=== PATIENT | female | born 1950 | race Two or more races ===

== ENCOUNTER 2020-01-04 10:46 | Outpatient (REF) | payer MEDICARE, SELFPAY ==
[2020-01-04 12:20] LABS: MANUAL DIFF FLAG NO
[2020-01-04 12:24] LABS: Basophils Absolute Auto 0.1 X10*3/uL (0.0-0.2); Basophils Percent Auto 0.9 % (0-2); Eosinophils Absolute Auto 0.5 X10*3/uL (0.0-0.4); Eosinophils Percent Auto 5.5 % (0-4); Hematocrit 37.2 % (37-47); Hemoglobin 11.3 g/dl (12.0-16.0); Imm Gran Abs Auto 0.04 X10*3/uL (0.00-0.03); Imm Gran Pct Auto 0.4 % (0.0-0.4); Lymphocytes Absolute Auto 2.9 X10*3/uL (1.2-4.9); Lymphocytes Percent Auto 32.7 % (20-40); Mean Corpuscular HGB Conc 30.4 g/dl (31.0-35.0); Mean Corpuscular Hemoglobin 26.7 pg (27.0-33.0); Mean Corpuscular Volume 87.7 fL (80-98); Mean Platelet Volume 10.2 fL (9.4-12.3); Monocytes Absolute Auto 0.7 X10*3/uL (0.1-1.2); Monocytes Percent Auto 7.7 % (2-11); Neutrophils Absolute Auto 4.8 X10*3/uL (2.0-8.3); Neutrophils Percent Auto 52.8 % (45-73); Platelet Count 294 X10*3/uL (160-400); Red Blood Count 4.24 X10*6/uL (4.20-5.50); Red Cell Distribution Width 14.8 % (11.0-16.0)
[2020-01-04 12:41] LABS: Alanine Aminotransferase 11 U/L (0-31); Albumin Level 3.8 g/dL (3.5-5.0); Alkaline Phosphatase 106 U/L (39-117); Anion Gap 11 (12-20); Aspartate Amino Transferase 16 U/L (5-31); Bilirubin Total 0.3 mg/dL (0.0-1.0); Blood Urea Nitrogen 23 mg/dL (9-16); Calcium 8.8 mg/dL (8.4-10.2); Carbon Dioxide 26 mmol/L (22-29); Chloride 107 mmol/L (96-108); Estimated Glomerular Filt Rate > 60; Glucose Random 68 mg/dL (60-115); Potassium 4.2 mmol/l (3.3-5.1); Sodium 140 mmol/L (135-145); Total Protein 6.5 g/dL (6.5-8.0)
[2020-01-04 13:04] LABS: Ferritin 8 ng/mL (10-250)
== END 2020-01-04 10:47 | disposition home or self-care (01) ==
LOC: HO.LAB 10:46
PROVIDERS: PCP Internal Medicine; Visit Provider Internal Medicine
DX: Z00.00 Encounter for general adult medical examination without abnormal findings (principal); D50.8 Other iron deficiency anemias; G47.33 Obstructive sleep apnea (adult) (pediatric); I10 Essential (primary) hypertension
CPT/HCPCS: 36415; 80053; 82728; 85025

== ENCOUNTER 2020-01-20 10:54 | Emergency (ER) | payer MEDICARE, OTHER, SELFPAY ==
--- NOTE | 2020-01-20 | ECG_ITS ---
Test Reason : CP Blood Pressure : / mmHG Vent. Rate : 062 BPM Atrial Rate : 062 BPM P-R Int : 138 ms QRS Dur : 078 ms QT Int : 428 ms P-R-T Axes : 019 021 030 degrees QTc Int : 434 ms Normal sinus rhythm T wave abnormality, consider anterior ischemia Abnormal ECG When compared with ECG of 02-DEC-2019 20:02, No significant change was found Referred By: Generic ED Physician Electronically Signed By:JUAN PABLO PINEDA MD
[2020-01-20 11:06] VITALS: BP 148/71; PULSE 64; RESP 18; TEMP 37.1; O2SAT 97; BMI 29.7
--- NOTE | 2020-01-20 11:09 | ED.CHESTPAIN ---
HPI - Chest Pain General Chief Complaint: Chest Pain Stated Complaint: abnormal ekg Time Seen by Provider: 01/20/20 11:09 Source: patient Mode of arrival: other (sent from PCP office) Limitations: no limitations History of Present Illness MD complaint: chest pain and other (abnormal EKG - t wave inversion V1-V3) Pertinent past history: asthma Onset (ago): week(s) (2) Timing of current episode: episodic Prior episodes: No Onset: during rest and during exertion Pain location: left chest Pain radiation: none Severity: mild Quality: heaviness Relieving factors: nothing Exacerbating factors: nothing Context: other (occurs most often when she is cooking) Treatment prior to arrival: none Related Data Previous Rx's Medication Instructions Recorded cyclobenzaprine 10 mg PO TID PRN #14 tab 01/20/20 Allergies Allergy/AdvReac Type Severity Reaction Status Date / Time aspirin [ASPIRIN] Allergy Unknown UNK Verified 01/20/20 11:11 Review of Systems Review of Systems: Constitutional : No Weight loss, No Fever, No Chills ENT/Mouth : No sore throat, No Rhinorrhea Eyes: No Eye Pain, No Swelling Cardiovascular : pos Chest Pain, pos SOB, no Dyspnea on Exertion, No Orthopnea, No Edema, No Palpitations Respiratory : No Cough, No Sputum Gastrointestinal : no Nausea, No Vomiting, No Diarrhea, No abdominal Pain, No Hematochezia, No Melena Genitourinary : No Dysuria, No Urinary Frequency Musculoskeletal : No joint pain, No Myalgias, No Joint Swelling Skin : No Skin Lesions, No rash Neuro : No Weakness, No Numbness, No Dizziness, No Headache Psych : No Anxiety/Panic, No Depression Heme/Lymph: No Bruising, No Lymphadenopathy Endocrine : No Polyuria, No Polydipsia All other systems reviewed and are negative [facility] Past Medical History Medical History Arthritis Asthma Hypertension Osteoporosis Surgical History Previous back surgery Social History Social History (Updated 01/20/20 @ 11:23 by Irene Abebe DO) Alcohol intake: never Smoking Status: Former smoker Use of substances other than those prescribed or required for medical reasons: No Advance Directives: Yes Advance Directives Information Provided: No Advance Directives on File: No Physical Exam Vital Signs: Vital Signs: Vital Signs Temp Pulse Resp BP Pulse Ox 01/20/20 13:15 66 14 137/85 94 01/20/20 11:06 98.7 F 64 18 148/71 H 97 Body Mass Index 29.7 Appearance: Alert. Oriented X3. No acute distress. Eyes: Pupils equal, round and reactive to light. ENT: Pharynx normal. Neck: Normal inspection. Neck supple. CVS: Normal heart rate and rhythm. Pulses normal. Chest: ttp along left chest that reproduces pain Respiratory: No respiratory distress. Breath sounds normal. Abdomen: Soft and nontender. Skin: Skin warm and dry. Normal skin color. Normal skin turgor. Extremities: No lower extremity edema. No calf ttp Neuro: Oriented X 3. No motor deficit. No sensory deficit. Course Course Course Narrative: initial testing negative - will repeat troponin if negative stable for DC repeat trop negative MDM - Chest Pain MDM Narrative Medical decision making narrative: 69 yo female with COPD, HTN, sleep apnea (not compliant) comes in with c/o chest pain L side that occurs at rest and exertion feels heavy x 2 weeks, sent from PCP for EKG changes - noted these were present in November so not new - her CP is reproduceable with palpation of her left chest - denies trauma, at this time will need labs, troponin, CXR, seems atypical in nature for PE/ACS Lab Data Result diagrams: 01/20/20 11:22 01/20/20 11:22 Labs: Lab Results 01/20/20 01/20/20 01/20/20 Range/Units 11:22 11:22 11:22 WBC 9.6 (4.8-10.8) X10*3/uL RBC 4.41 (4.20-5.50) X10*6/uL Hgb 11.8 L (12.0-16.0) g/dl Hct 37.5 (37-47) % MCV 85.0 (80-98) fL MCH 26.8 L (27.0-33.0) pg MCHC 31.5 (31.0-35.0) g/dl RDW 14.1 (11.0-16.0) % Plt Count 320 (160-400) X10*3/uL MPV 9.7 (9.4-12.3) fL Immature Gran % (Auto) 0.3 (0.0-0.4) % Neut % (Auto) 45.9 (45-73) % Lymph % (Auto) 39.7 (20-40) % [place] % (Auto) 9.9 (2-11) % Eos % (Auto) 3.4 (0-4) % Baso % (Auto) 0.8 (0-2) % Lymph # (Auto) 3.8 (1.2-4.9) X10*3/uL [place] # (Auto) 1.0 (0.1-1.2) X10*3/uL Eos # (Auto) 0.3 (0.0-0.4) X10*3/uL Baso # (Auto) 0.1 (0.0-0.2) X10*3/uL Abs Immat Gran (auto) 0.03 (0.00-0.03) X10*3/uL Absolute Neuts (auto) 4.4 (2.0-8.3) X10*3/uL Absolute Nucleated RBC 0.000 (0.0-0.012) X10*3/uL Nucleated RBC % (auto) 0.0 (0.0-0.2) /100WBC PT 11.6 (10.8-13.0) SEC INR 1.0 (0.9-1.1) APTT 30.2 (24.1-38.0) SEC Sodium 139 (135-145) mmol/L Potassium 4.8 (3.3-5.1) mmol/l Chloride 103 (96-108) mmol/L Carbon Dioxide 27 (22-29) mmol/L Anion Gap 14 (12-20) BUN 15 (9-16) mg/dL Creatinine 0.67 (0.5-1.4) mg/dL Estim Creat Clear Calc 68.6 Estimated GFR > 60 Random Glucose 76 (60-115) mg/dL Calcium 8.5 (8.4-10.2) mg/dL Magnesium (1.6-2.6) mg/dL Total Bilirubin (0.0-1.0) mg/dL Direct Bilirubin (0.0-0.5) mg/dL AST (5-31) U/L ALT (0-31) U/L Alkaline Phosphatase (39-117) U/L Troponin I High Sens (<3.5-17.0) ng/L Total Protein (6.5-8.0) g/dL Albumin (3.5-5.0) g/dL Lipase (8-78) U/L 01/20/20 01/20/20 01/20/20 Range/Units 11:22 11:23 14:14 WBC (4.8-10.8) X10*3/uL RBC (4.20-5.50) X10*6/uL Hgb (12.0-16.0) g/dl Hct (37-47) % MCV (80-98) fL MCH (27.0-33.0) pg MCHC (31.0-35.0) g/dl RDW (11.0-16.0) % Plt Count (160-400) X10*3/uL MPV (9.4-12.3) fL Immature Gran % (Auto) (0.0-0.4) % Neut % (Auto) (45-73) % Lymph % (Auto) (20-40) % [place] % (Auto) (2-11) % Eos % (Auto) (0-4) % Baso % (Auto) (0-2) % Lymph # (Auto) (1.2-4.9) X10*3/uL [place] # (Auto) (0.1-1.2) X10*3/uL Eos # (Auto) (0.0-0.4) X10*3/uL Baso # (Auto) (0.0-0.2) X10*3/uL Abs Immat Gran (auto) (0.00-0.03) X10*3/uL Absolute Neuts (auto) (2.0-8.3) X10*3/uL Absolute Nucleated RBC (0.0-0.012) X10*3/uL Nucleated RBC % (auto) (0.0-0.2) /100WBC PT (10.8-13.0) SEC INR (0.9-1.1) APTT (24.1-38.0) SEC Sodium (135-145) mmol/L Potassium (3.3-5.1) mmol/l Chloride (96-108) mmol/L Carbon Dioxide (22-29) mmol/L Anion Gap (12-20) BUN (9-16) mg/dL Creatinine (0.5-1.4) mg/dL Estim Creat Clear Calc Estimated GFR Random Glucose (60-115) mg/dL Calcium (8.4-10.2) mg/dL Magnesium 2.0 (1.6-2.6) mg/dL Total Bilirubin 0.5 (0.0-1.0) mg/dL Direct Bilirubin 0.2 (0.0-0.5) mg/dL AST 18 (5-31) U/L ALT 12 (0-31) U/L Alkaline Phosphatase 101 (39-117) U/L Troponin I High Sens < 3.5 < 3.5 (<3.5-17.0) ng/L Total Protein 6.9 (6.5-8.0) g/dL Albumin 4.0 (3.5-5.0) g/dL Lipase 21 (8-78) U/L Discharge Plan Discharge Clinical Impression: Atypical chest pain Patient Disposition: Home, Self-Care Instructions: Chest Pain (ED) Additional Instructions: return to ED for any worsening symptoms or concerns Prescriptions: New cyclobenzaprine 10 mg tablet 10 mg PO TID PRN (Reason: muscle spasm) Qty: 14 RF: 0 Referrals: Johanna Burris MD [Primary Care Provider] - 2 days (if not better)
--- NOTE | 2020-01-20 11:18 | XR_ITS ---
EXAMINATION: XR CHEST CLINICAL INFORMATION: Chest pain. COMPARISON: Chest 12/02/2019 TECHNIQUE: Frontal view of the chest was obtained. FINDINGS: The lungs are well-expanded with increased interstitial markings in both lungs. No consolidation, mass or pleural effusion seen. Heart size and pulmonary vascularity is normal. No gross bony abnormality. XR/XR chest 1V IMPRESSION: Slight increase in bilateral interstitial markings more prominent then previous exam 12/02/2019, likely chronic interstitial lung disease.
[2020-01-20 11:31] LABS: MANUAL DIFF FLAG NO
[2020-01-20 11:35] LABS: Basophils Absolute Auto 0.1 X10*3/uL (0.0-0.2); Basophils Percent Auto 0.8 % (0-2); Eosinophils Absolute Auto 0.3 X10*3/uL (0.0-0.4); Eosinophils Percent Auto 3.4 % (0-4); Hematocrit 37.5 % (37-47); Hemoglobin 11.8 g/dl (12.0-16.0); Imm Gran Abs Auto 0.03 X10*3/uL (0.00-0.03); Imm Gran Pct Auto 0.3 % (0.0-0.4); Lymphocytes Absolute Auto 3.8 X10*3/uL (1.2-4.9); Lymphocytes Percent Auto 39.7 % (20-40); Mean Corpuscular HGB Conc 31.5 g/dl (31.0-35.0); Mean Corpuscular Hemoglobin 26.8 pg (27.0-33.0); Mean Platelet Volume 9.7 fL (9.4-12.3); Monocytes Percent Auto 9.9 % (2-11); Neutrophils Absolute Auto 4.4 X10*3/uL (2.0-8.3); Neutrophils Percent Auto 45.9 % (45-73); Platelet Count 320 X10*3/uL (160-400); Red Blood Count 4.41 X10*6/uL (4.20-5.50); Red Cell Distribution Width 14.1 % (11.0-16.0); White Blood Count 9.6 X10*3/uL (4.8-10.8)
[2020-01-20] MEDS: Cyclobenzaprine HCl 10 MG TABLET PO (11:35)
[2020-01-20] MEDS: Acetaminophen 325 MG TABLET 650 MG PO (11:36)
[2020-01-20 11:38] LABS: Prothrombin Time 11.6 SEC (10.8-13.0)
[2020-01-20 11:41] LABS: Partial Thromboplastin Time 30.2 SEC (24.1-38.0)
[2020-01-20 12:08] LABS: Anion Gap 14 (12-20); Blood Urea Nitrogen 15 mg/dL (9-16); Calcium 8.5 mg/dL (8.4-10.2); Carbon Dioxide 27 mmol/L (22-29); Chloride 103 mmol/L (96-108); Creatinine Clr Calc Pharmacy 68.6; Estimated Glomerular Filt Rate > 60; Glucose Random 76 mg/dL (60-115); Potassium 4.8 mmol/l (3.3-5.1); Sodium 139 mmol/L (135-145)
[2020-01-20 12:15] LABS: Troponin-I High Sensitivity < 3.5 ng/L (<3.5-17.0)
[2020-01-20 13:15] VITALS: BP 137/85; PULSE 66; RESP 14; O2SAT 94
[2020-01-20 14:39] LABS: Alanine Aminotransferase 12 U/L (0-31); Alkaline Phosphatase 101 U/L (39-117); Aspartate Amino Transferase 18 U/L (5-31); Bilirubin Direct 0.2 mg/dL (0.0-0.5); Bilirubin Total 0.5 mg/dL (0.0-1.0); Lipase 21 U/L (8-78); Total Protein 6.9 g/dL (6.5-8.0)
[2020-01-20 14:46] LABS: Troponin-I High Sensitivity < 3.5 ng/L (<3.5-17.0)
== END 2020-01-20 15:22 | disposition home or self-care (01) ==
PROVIDERS: Emergency Provider Emergency Medicine; PCP Internal Medicine
DX: R07.89 Other chest pain (principal); J44.9 Chronic obstructive pulmonary disease, unspecified; I10 Essential (primary) hypertension; J45.909 Unspecified asthma, uncomplicated; Z87.891 Personal history of nicotine dependence; Z79.899 Other long term (current) drug therapy
CPT/HCPCS: 36415; 71045; 80048; 80076; 83690; 83735; 84484; 85025; 85610; 85730; 93005; 99283; 99285

== ENCOUNTER 2020-05-11 12:03 | Outpatient (REF) | payer MEDICARE, SELFPAY | END 2020-05-11 12:04 | disposition home or self-care (01) | LOC: HO.LAB 12:03 | PROVIDERS: Visit Provider Internal Medicine | DX: Z20.822 Contact with and (suspected) exposure to COVID-19 (principal) | CPT/HCPCS: 36415; C9803; U0003; U0005 ==

== ENCOUNTER 2020-06-01 10:04 | Outpatient (REF) | payer MEDICARE, MEDICAID, SELFPAY ==
[2020-06-01 10:36] LABS: MANUAL DIFF FLAG NO
[2020-06-01 10:40] LABS: Basophils Absolute Auto 0.1 X10*3/uL (0.0-0.2); Basophils Percent Auto 0.9 % (0-2); Eosinophils Absolute Auto 0.2 X10*3/uL (0.0-0.4); Eosinophils Percent Auto 2.6 % (0-4); Hematocrit 34.5 % (37-47); Hemoglobin 10.6 g/dl (12.0-16.0); Imm Gran Abs Auto 0.03 X10*3/uL (0.00-0.03); Imm Gran Pct Auto 0.4 % (0.0-0.4); Lymphocytes Absolute Auto 3.2 X10*3/uL (1.2-4.9); Lymphocytes Percent Auto 37.2 % (20-40); Mean Corpuscular HGB Conc 30.7 g/dl (31.0-35.0); Mean Corpuscular Hemoglobin 24.9 pg (27.0-33.0); Mean Platelet Volume 9.7 fL (9.4-12.3); Monocytes Absolute Auto 0.8 X10*3/uL (0.1-1.2); Monocytes Percent Auto 9.2 % (2-11); Neutrophils Absolute Auto 4.2 X10*3/uL (2.0-8.3); Neutrophils Percent Auto 49.7 % (45-73); Platelet Count 293 X10*3/uL (160-400); Red Blood Count 4.26 X10*6/uL (4.20-5.50); Red Cell Distribution Width 15.2 % (11.0-16.0); White Blood Count 8.5 X10*3/uL (4.8-10.8)
[2020-06-01 11:15] LABS: Alanine Aminotransferase 8 U/L (0-31); Albumin Level 3.9 g/dL (3.5-5.0); Alkaline Phosphatase 115 U/L (39-117); Anion Gap 11 (12-20); Aspartate Amino Transferase 17 U/L (5-31); Bilirubin Total 0.5 mg/dL (0.0-1.0); Blood Urea Nitrogen 19 mg/dL (9-16); Calcium 8.6 mg/dL (8.4-10.2); Carbon Dioxide 25 mmol/L (22-29); Chloride 109 mmol/L (96-108); Cholesterol 213 mg/dL; Estimated Glomerular Filt Rate > 60; Glucose Random 83 mg/dL (60-115); HDL Cholesterol 64 mg/dL; LDL Cholesterol Calculated 121 mg/dl; Potassium 4.7 mmol/L (3.3-5.1); Sodium 140 mmol/L (135-145); Total Protein 6.8 g/dL (6.5-8.0); Triglycerides 140 mg/dL
== END 2020-06-01 10:05 | disposition home or self-care (01) ==
LOC: HO.LAB 10:04
PROVIDERS: PCP Internal Medicine; Visit Provider Internal Medicine
DX: D50.8 Other iron deficiency anemias (principal); F33.41 Major depressive disorder, recurrent, in partial remission; G44.209 Tension-type headache, unspecified, not intractable; I10 Essential (primary) hypertension; R06.02 Shortness of breath; R10.12 Left upper quadrant pain
CPT/HCPCS: 36415; 80053; 80061; 85025

== ENCOUNTER 2020-10-06 09:28 | Outpatient (REF) | payer MEDICARE, OTHER, SELFPAY ==
[2020-10-06 10:09] LABS: MANUAL DIFF FLAG NO
[2020-10-06 10:12] LABS: Basophils Absolute Auto 0.1 X10*3/uL (0.0-0.2); Basophils Percent Auto 0.9 % (0-2); Eosinophils Absolute Auto 0.4 X10*3/uL (0.0-0.4); Eosinophils Percent Auto 4.1 % (0-4); Hemoglobin 10.7 g/dl (12.0-16.0); Imm Gran Abs Auto 0.04 X10*3/uL (0.00-0.03); Imm Gran Pct Auto 0.5 % (0.0-0.4); Lymphocytes Percent Auto 34.2 % (20-40); Mean Corpuscular HGB Conc 30.6 g/dl (31.0-35.0); Mean Corpuscular Hemoglobin 23.7 pg (27.0-33.0); Mean Corpuscular Volume 77.6 fL (80-98); Mean Platelet Volume 9.4 fL (9.4-12.3); Monocytes Absolute Auto 0.8 X10*3/uL (0.1-1.2); Monocytes Percent Auto 9.1 % (2-11); Neutrophils Absolute Auto 4.5 X10*3/uL (2.0-8.3); Neutrophils Percent Auto 51.2 % (45-73); Platelet Count 309 X10*3/uL (160-400); Red Blood Count 4.51 X10*6/uL (4.20-5.50); Red Cell Distribution Width 17.4 % (11.0-16.0); White Blood Count 8.8 X10*3/uL (4.8-10.8)
[2020-10-06 11:01] LABS: Ferritin 13 ng/mL (10-250)
== END 2020-10-06 09:29 | disposition home or self-care (01) ==
LOC: HO.LAB 09:28
PROVIDERS: PCP Internal Medicine; Visit Provider Internal Medicine
DX: D50.8 Other iron deficiency anemias (principal); F33.41 Major depressive disorder, recurrent, in partial remission; I10 Essential (primary) hypertension; J45.998 Other asthma; R25.2 Cramp and spasm
CPT/HCPCS: 36415; 82728; 85025

== ENCOUNTER 2021-02-06 09:34 | Outpatient (REF) | payer MEDICARE, MEDICAID, SELFPAY ==
[2021-02-06 09:51] LABS: MANUAL DIFF FLAG NO
[2021-02-06 10:12] LABS: Basophils Absolute Auto 0.1 X10*3/uL (0.0-0.2); Basophils Percent Auto 0.5 % (0-2); Eosinophils Absolute Auto 0.2 X10*3/uL (0.0-0.4); Eosinophils Percent Auto 2.5 % (0-4); Hemoglobin 9.6 g/dl (12.0-16.0); Imm Gran Abs Auto 0.04 X10*3/uL (0.00-0.03); Imm Gran Pct Auto 0.4 % (0.0-0.4); Lymphocytes Absolute Auto 2.7 X10*3/uL (1.2-4.9); Lymphocytes Percent Auto 28.6 % (20-40); Mean Corpuscular Hemoglobin 22.9 pg (27.0-33.0); Mean Corpuscular Volume 76.2 fL (80.0-98.0); Mean Platelet Volume 9.1 fL (9.4-12.3); Monocytes Absolute Auto 0.9 X10*3/uL (0.1-1.2); Monocytes Percent Auto 9.1 % (2-11); Neutrophils Absolute Auto 5.5 x10*3/uL (2.0-8.3); Neutrophils Percent Auto 58.9 % (45-73); Platelet Count 383 X10*3/uL (160-400); Red Cell Distribution Width 16.7 % (11.0-16.0); White Blood Count 9.3 X10*3/uL (4.8-10.8)
[2021-02-06 10:55] LABS: Ferritin 17 ng/mL (10-250)
== END 2021-02-06 09:35 | disposition home or self-care (01) ==
LOC: HO.LAB 09:34
PROVIDERS: PCP Internal Medicine; Visit Provider Internal Medicine
DX: Z00.00 Encounter for general adult medical examination without abnormal findings (principal); D50.8 Other iron deficiency anemias; F33.41 Major depressive disorder, recurrent, in partial remission; I10 Essential (primary) hypertension
CPT/HCPCS: 36415; 82728; 85025

== ENCOUNTER 2021-03-21 12:43 | Outpatient (REF) | payer OTHER, MEDICAID, SELFPAY ==
[2021-03-21 15:42] LABS: Binax Internal Control QC Valid; Binax Lot number: 9864; Binax Now Covid-19 Ag Positive (Negative)
== END 2021-03-21 12:44 | disposition home or self-care (01) ==
LOC: HO.LAB 12:43
PROVIDERS: Visit Provider Internal Medicine
DX: Z20.822 Contact with and (suspected) exposure to COVID-19 (principal)
CPT/HCPCS: 36415; C9803

== ENCOUNTER 2021-03-28 10:34 | Outpatient (REF) | payer OTHER, MEDICAID, SELFPAY ==
[2021-03-28 13:26] LABS: Binax Internal Control QC Valid; Binax Now Covid-19 Ag Positive (Negative)
== END 2021-03-28 10:35 | disposition home or self-care (01) ==
LOC: HO.LAB 10:34
PROVIDERS: Visit Provider Internal Medicine
DX: Z20.822 Contact with and (suspected) exposure to COVID-19 (principal)
CPT/HCPCS: C9803

== ENCOUNTER 2021-04-04 07:54 | Outpatient (REF) | payer OTHER, MEDICAID, SELFPAY ==
[2021-04-04 08:35] LABS: COVID-19 Test Positive (Negative)
== END 2021-04-04 07:55 | disposition home or self-care (01) ==
LOC: HO.LAB 07:54
PROVIDERS: Visit Provider Internal Medicine
DX: Z20.822 Contact with and (suspected) exposure to COVID-19 (principal)
CPT/HCPCS: 87635; C9803

== ENCOUNTER 2021-04-10 08:31 | Outpatient (REF) | payer OTHER, MEDICAID, MEDICARE, SELFPAY ==
[2021-04-10 09:46] LABS: Binax Internal Control QC Valid; Binax Now Covid-19 Ag Negative (Negative)
== END 2021-04-10 08:32 | disposition home or self-care (01) ==
LOC: HO.LAB 08:31
PROVIDERS: Visit Provider Internal Medicine
DX: Z20.822 Contact with and (suspected) exposure to COVID-19 (principal)
CPT/HCPCS: C9803

== ENCOUNTER 2021-04-24 09:06 | Outpatient (REF) | payer OTHER, MEDICAID, MEDICARE, SELFPAY ==
[2021-04-24 09:26] LABS: COVID-19 Test Negative (Negative)
== END 2021-04-24 09:07 | disposition home or self-care (01) ==
LOC: HO.LAB 09:06
PROVIDERS: Visit Provider Internal Medicine
DX: Z20.822 Contact with and (suspected) exposure to COVID-19 (principal)
CPT/HCPCS: 87635; C9803

== ENCOUNTER 2021-06-14 08:27 | Outpatient (REF) | payer OTHER, SELFPAY ==
[2021-06-14 09:22] LABS: MANUAL DIFF FLAG NO
[2021-06-14 09:43] LABS: Basophils Absolute Auto 0.1 X10*3/uL (0.0-0.2); Basophils Percent Auto 0.5 % (0-2); Eosinophils Absolute Auto 0.3 X10*3/uL (0.0-0.4); Eosinophils Percent Auto 2.4 % (0-4); Hematocrit 29.9 % (37.0-47.0); Hemoglobin 8.7 g/dl (12.0-16.0); Imm Gran Abs Auto 0.05 X10*3/uL (0.00-0.03); Imm Gran Pct Auto 0.5 % (0.0-0.4); Lymphocytes Absolute Auto 2.9 X10*3/uL (1.2-4.9); Lymphocytes Percent Auto 27.3 % (20-40); Mean Corpuscular HGB Conc 29.1 g/dl (31.0-35.0); Mean Corpuscular Hemoglobin 21.3 pg (27.0-33.0); Mean Corpuscular Volume 73.1 fL (80.0-98.0); Monocytes Percent Auto 9.1 % (2-11); Neutrophils Absolute Auto 6.3 x10*3/uL (2.0-8.3); Neutrophils Percent Auto 60.2 % (45-73); Platelet Count 360 X10*3/uL (160-400); Red Blood Count 4.09 X10*6/uL (4.20-5.50); Red Cell Distribution Width 17.8 % (11.0-16.0); White Blood Count 10.5 X10*3/uL (4.8-10.8)
[2021-06-14 11:05] LABS: Ferritin 13 ng/mL (10-250)
== END 2021-06-14 08:28 | disposition home or self-care (01) ==
LOC: HO.LAB 08:27
PROVIDERS: PCP Internal Medicine; Visit Provider Internal Medicine
DX: D50.8 Other iron deficiency anemias (principal); I10 Essential (primary) hypertension; J44.9 Chronic obstructive pulmonary disease, unspecified; L30.0 Nummular dermatitis; M25.512 Pain in left shoulder
CPT/HCPCS: 36415; 82728; 85025

== ENCOUNTER 2021-06-27 15:04 | Outpatient (REF) | payer OTHER, SELFPAY ==
--- NOTE | ~2021-06-27 | XR_ITS ---
EXAMINATION: XR LUMBOSACRAL SPINE CLINICAL INFORMATION: Low back pain. Evaluate for compression. COMPARISON: None. TECHNIQUE: 3 views of the lumbosacral spine. FINDINGS: There is normal lumbar lordosis. There is grade 1 anterolisthesis L4 over L5. The rest of the vertebral alignment is normal. There is mild endplate deformity L2 vertebra. The rest of the vertebral heights and disc heights are normal. There is cement augmentation of T11 vertebra from an old fracture. There is diffuse osteopenia. The paravertebral soft tissues are normal. Visualized SI joints are normal. XR/XR lumbar spine 2-3V IMPRESSION: Mild endplate deformity L2 vertebra, suspicious for fracture. If patient has persistent pain centered at the L2 vertebra, further evaluation with bone scan or an MRI can be obtained as an outpatient. Mild osteopenia.
== END 2021-06-27 15:05 | disposition home or self-care (01) ==
LOC: HO.XRAY 15:04
PROVIDERS: PCP Internal Medicine; Visit Provider Internal Medicine
DX: M54.50 Low back pain, unspecified (principal)
CPT/HCPCS: 72100

== ENCOUNTER 2021-07-25 09:36 | Outpatient (REF) | payer OTHER, SELFPAY | END 2021-07-25 09:37 | disposition home or self-care (01) | LOC: HO.MDS 09:36 | PROVIDERS: Visit Provider Internal Medicine Medical Oncology | DX: D50.9 Iron deficiency anemia, unspecified (principal) | CPT/HCPCS: 96365; J2916 ==

== ENCOUNTER 2021-07-25 11:27 | Outpatient (REF) | payer OTHER, MEDICAID, SELFPAY ==
--- NOTE | ~2021-07-25 | US_ITS ---
EXAMINATION: US ABDOMEN COMPLETE CLINICAL INFORMATION: Right upper quadrant pain. COMPARISON: CT abdomen and pelvis with contrast 03/05/2018. TECHNIQUE: Real-time imaging of the abdominal viscera. FINDINGS: PANCREAS: Normal. ABDOMINAL AORTA: Atherosclerosis of the abdominal aorta. INFERIOR VENA CAVA: Visualized portions are normal. LIVER: The liver is normal in size. The liver contour is normal. Parenchymal echogenicity is normal. Calcified granuloma in the right hepatic lobe stable from prior. There is no intrahepatic biliary duct dilatation seen. GALLBLADDER: Normal. The gallbladder is physiologically distended without evidence of stones, sludge, polyps, wall thickening or pericholecystic fluid. COMMON BILE DUCT: Normal in caliber measuring 0.5 cm in diameter. RIGHT KIDNEY: 1.1 cm benign-appearing renal cyst, no imaging follow-up recommended. Right renal parenchymal cortical scarring. No hydronephrosis or renal calculi. The kidney measures 10.3 cm in maximum dimension. LEFT KIDNEY: Benign-appearing 2.6 cm renal cyst, no routine follow up imaging recommended. No hydronephrosis or renal calculi. The kidney measures 11.1 cm in maximum dimension. SPLEEN: Normal. The spleen measures 7.8 cm in maximum dimension. FREE FLUID: None. US/US abdomen complete IMPRESSION: No acute findings to explain symptoms of right upper quadrant pain. No cholelithiasis or evidence of acute cholecystitis. Atherosclerosis of the abdominal aorta. Stable calcified granuloma in the right hepatic lobe.
== END 2021-07-25 11:28 | disposition home or self-care (01) ==
LOC: HO.US 11:27
PROVIDERS: Visit Provider Internal Medicine
DX: R10.811 Right upper quadrant abdominal tenderness (principal)
CPT/HCPCS: 76700

== ENCOUNTER 2021-07-31 10:38 | Outpatient (REF) | payer OTHER, SELFPAY | END 2021-07-31 10:39 | disposition home or self-care (01) | LOC: HO.MDS 10:38 | PROVIDERS: Visit Provider Internal Medicine Medical Oncology | DX: D50.9 Iron deficiency anemia, unspecified (principal) | CPT/HCPCS: 96365; J2916 ==

== ENCOUNTER 2021-08-07 14:04 | Outpatient (REF) | payer OTHER, SELFPAY | END 2021-08-07 14:05 | disposition home or self-care (01) | LOC: HO.MDS 14:04 | PROVIDERS: PCP Internal Medicine; Visit Provider Internal Medicine Medical Oncology | DX: D50.9 Iron deficiency anemia, unspecified (principal) | CPT/HCPCS: 96365; J2916 ==

== ENCOUNTER 2021-08-15 11:36 | Outpatient (REF) | payer OTHER, SELFPAY ==
[2021-08-15 12:11] LABS: MANUAL DIFF FLAG NO
[2021-08-15 12:18] LABS: Basophils Percent Auto 0.3 % (0-2); Eosinophils Absolute Auto 0.2 X10*3/uL (0.0-0.4); Eosinophils Percent Auto 1.7 % (0-4); Hematocrit 35.2 % (37.0-47.0); Hemoglobin 10.3 g/dl (12.0-16.0); Imm Gran Abs Auto 0.03 X10*3/uL (0.00-0.03); Imm Gran Pct Auto 0.3 % (0.0-0.4); Lymphocytes Absolute Auto 2.9 X10*3/uL (1.2-4.9); Lymphocytes Percent Auto 31.5 % (20-40); Mean Corpuscular HGB Conc 29.3 g/dl (31.0-35.0); Mean Corpuscular Hemoglobin 23.1 pg (27.0-33.0); Mean Corpuscular Volume 78.9 fL (80.0-98.0); Mean Platelet Volume 9.1 fL (9.4-12.3); Monocytes Absolute Auto 0.7 X10*3/uL (0.1-1.2); Monocytes Percent Auto 7.8 % (2-11); Neutrophils Absolute Auto 5.4 x10*3/uL (2.0-8.3); Neutrophils Percent Auto 58.4 % (45-73); Platelet Count 310 X10*3/uL (160-400); Red Blood Count 4.46 X10*6/uL (4.20-5.50); White Blood Count 9.2 X10*3/uL (4.8-10.8)
== END 2021-08-15 11:37 | disposition home or self-care (01) ==
LOC: HO.MDS 11:36
PROVIDERS: Visit Provider Internal Medicine Medical Oncology
DX: D50.9 Iron deficiency anemia, unspecified (principal)
CPT/HCPCS: 36415; 85025; 96365; J2916

== ENCOUNTER 2021-08-18 17:49 | Emergency (ER) | payer OTHER, MEDICAID, SELFPAY ==
--- NOTE | ~2021-08-18 | CT_ITS ---
EXAMINATION: CT ABDOMEN AND PELVIS WITHOUT CONTRAST CLINICAL INFORMATION: Flank pain. COMPARISON: Abdominal ultrasound of 07/25/2021, CT abdomen and pelvis of 02/23/2018. TECHNIQUE: Multidetector volumetric imaging was performed from the superior aspect of the liver through the pubic symphysis. Sagittal and coronal reformatted images were obtained on the technologist's workstation. This CT examination was performed using dose optimization techniques as appropriate, variously including the following: *Automated exposure control. *Adjustment of mA and/or kV according to patient size (this includes techniques or standardized protocols for targeted exams where dose is matched to indication/reason for exam; i.e. extremities or head). *Use of iterative reconstruction technique. DLP: 462 mGy-cm FINDINGS: LUNG BASES: Evaluation is somewhat limited due to multiple respiratory motion artifacts. No focal opacity is noted. Alipvmwk-zr-lvcnr hiatal hernia containing stomach. No pleural or pericardial effusion. LIVER, GALLBLADDER, AND BILIARY TREE: The liver is normal in size, shape, and attenuation. No focal hepatic lesion or biliary ductal dilatation is present. The gallbladder is unremarkable with no evidence of radiopaque gallstones, gallbladder wall thickening, or obvious pericholecystic inflammatory changes. PANCREAS: Unremarkable. SPLEEN: Unremarkable. ADRENAL GLANDS: Unremarkable. KIDNEYS AND URETERS: The kidneys are normal in size, shape, and attenuation. No hydronephrosis, hydroureter, or calculi seen. No perinephric stranding. A 3 cm hypodense lesion is noted in the left huj-el-ztnzv renal sinus representing a cyst by CT Hounsfield units criteria; corresponding simple cyst is noted on the ultrasound of 07/25/2021. A 0.9 cm low-attenuation lesion in the lower pole of the right kidney represents a cyst by CT Hounsfield units criteria; corresponding simple cyst is noted on the ultrasound of 07/25/2021. No further imaging follow up is noted for bilateral renal cysts. BLADDER: Significantly underdistended and, therefore, not optimally evaluated. GASTROINTESTINAL TRACT: The small and large bowel are unremarkable. The appendix is unremarkable. ABDOMINAL WALL: No significant hernia is appreciated. LYMPH NODES: No pathologically enlarged lymph nodes are noted. VASCULAR: The aorta is normal in caliber. Mild calcific atherosclerosis of the aortoiliac vessels. Incidental note is made of retroaortic left renal vein. PELVIC VISCERA: Unremarkable CT appearance of the uterus and ovaries/adnexa. No adnexal mass. OSSEOUS STRUCTURES: Diffuse osteopenia. Vertebroplasty changes are noted in the T11 body, similar to previous study. Mldk-bn-iqqiuais inferior endplate compression of L2 is a stable finding compared to previous CT. Stable mild grade 1 anterolisthesis of L4 over L5. No acute or suspicious osseous lesions are noted. CT/CT abdomen pelvis wo con IMPRESSION: 1. No evidence of radiopaque urinary tract calculi, hydroureteronephrosis or perinephric stranding. 2. Stable vrytmspm-zc-tqalz hiatal hernia. 3. Normal appendix. 4. No acute abnormalities identified to explain patient's symptoms. Fleischner guidelines were followed.
--- NOTE | ~2021-08-18 | XR_ITS ---
EXAMINATION: CHEST 2 VIEWS CLINICAL INFORMATION: SOB, back pain . COMPARISON: 01/20/2020. TECHNIQUE: PA and lateral views of the chest obtained. FINDINGS: The lungs are well expanded. Chronic appearing coarsened reticular markings are again seen bilaterally but no superimposed focal infiltrate, effusion, edema, or pneumothorax. Cardiac and mediastinal silhouettes are within normal limits for technique. No acute bony abnormality seen with vertebroplasty cement again noted. XR/XR chest 2V IMPRESSION: No evidence of acute disease compared to 01/20/2020
[2021-08-18 18:03] VITALS: BP 141/78; PULSE 74; RESP 18; TEMP 36.6; O2SAT 98; BMI 26.9
--- NOTE | 2021-08-18 21:03 | ED.SOB ---
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 Mode of arrival: ambulatory Limitations: no limitations Related Data Home Medications Medication Instructions Recorded Confirmed gabapentin 100 mg capsule 2 cap PO TID 07/12/21 07/12/21 lisinopril 10 mg tablet 1 tab PO DAILY 07/12/21 07/12/21 loratadine 10 mg tablet 1 tab PO DAILY PRN 07/12/21 07/12/21 meclizine 12.5 mg tablet 1 tab PO TID 07/12/21 07/12/21 meloxicam 15 mg tablet 1 tab PO DAILY 07/12/21 07/12/21 omeprazole 20 mg capsule,delayed 1 cap PO DAILY 07/12/21 07/12/21 release oxycodone 5 mg tablet 1 tab PO QID PRN 07/12/21 07/12/21 sertraline 100 mg tablet 1 tab PO DAILY 07/12/21 07/12/21 sertraline 50 mg tablet 1 tab PO DAILY 07/12/21 07/12/21 Previous Rx's Medication Instructions Recorded cyclobenzaprine 10 mg tablet 10 mg PO TID PRN #14 tab 01/20/20 Allergies Allergy/AdvReac Type Severity Reaction Status Date / Time aspirin [ASPIRIN] Allergy Unknown UNK Verified 01/20/20 11:11 [facility] Past Medical History Attestation statement: The following information was validated with the patient. Medical History Arthritis Asthma Hypertension Osteoporosis Surgical History Previous back surgery Social History Social History (Updated 08/18/21 @ 21:03 by Irene Abebe DO) Alcohol intake: never Patient Tobacco Use Status: Tobacco use Unknown Advance Directives: No Advance Directives Information Provided: No Physical Exam Vital Signs: Vital Signs: Last Vital Signs Temp 97.8 F 08/18/21 18:03 Pulse 74 08/18/21 18:03 Resp 18 08/18/21 18:03 BP 141/78 H 08/18/21 18:03 Pulse Ox 98 08/18/21 18:03 BMI result Body Mass Index 26.9 Discharge Plan Discharge Prescriptions: No Action cyclobenzaprine 10 mg tablet 10 mg PO TID PRN (Reason: muscle spasm) Qty: 14 0RF meloxicam 15 mg tablet 1 tab PO DAILY 0RF sertraline 100 mg tablet 1 tab PO DAILY 0RF meclizine 12.5 mg tablet 1 tab PO TID 0RF lisinopril 10 mg tablet 1 tab PO DAILY 0RF omeprazole 20 mg capsule,delayed release(DR/EC) 1 cap PO DAILY 0RF gabapentin 100 mg capsule 2 cap PO TID 0RF sertraline 50 mg tablet 1 tab PO DAILY 0RF loratadine 10 mg tablet 1 tab PO DAILY PRN (Reason: allergies) 0RF oxycodone 5 mg tablet 1 tab PO QID PRN (Reason: pain) 0RF
[2021-08-18] MEDS: oxyCODONE HCl Immed Release 5 MG TABLET PO (21:16)
[2021-08-18] MEDS: Lidocaine 4 % Patch ADH..PATCH 2 PATCH TRANSDERMA (21:16)
--- NOTE | 2021-08-18 21:18 | ED_ITS ---
HPI - Back Pain/Injury General Chief Complaint: Back Pain/Injury Stated Complaint: SOB x4 days/back pain Time Seen by Provider: 08/18/21 18:38 Source: patient Mode of arrival: ambulatory Limitations: no limitations History of Present Illness HPI Narrative: 71 yo female with hx of anemia, HTN, asthma, DAGOBERTO, back pain, here with c/o 4 days of atraumatic low back pain no IVDA< no AC therapy, no b/b incontinence no saddle anesthesia taking tylenol without relief MD elicited complaint: back pain Pertinent past history: prior back pain Onset (ago): day(s) (4) Timing: constant Severity: moderate Similar Symptoms Previously: No Quality: throbbing Location: lumbar spine Radiation: none Exacerbating factors: movement, deep breaths and coughing/sneezing Relieving factors: none Context: unknown Associated symptoms: denies other symptoms Treatments prior to arrival: acetaminophen Work related injury: No Related Data Home Medications Medication Instructions Recorded Confirmed gabapentin 100 mg capsule 2 cap PO TID 07/12/21 07/12/21 lisinopril 10 mg tablet 1 tab PO DAILY 07/12/21 07/12/21 loratadine 10 mg tablet 1 tab PO DAILY PRN 07/12/21 07/12/21 meclizine 12.5 mg tablet 1 tab PO TID 07/12/21 07/12/21 meloxicam 15 mg tablet 1 tab PO DAILY 07/12/21 07/12/21 omeprazole 20 mg capsule,delayed 1 cap PO DAILY 07/12/21 07/12/21 release oxycodone 5 mg tablet 1 tab PO QID PRN 07/12/21 07/12/21 sertraline 100 mg tablet 1 tab PO DAILY 07/12/21 07/12/21 sertraline 50 mg tablet 1 tab PO DAILY 07/12/21 07/12/21 Previous Rx's Medication Instructions Recorded cyclobenzaprine 10 mg tablet 10 mg PO TID PRN #14 tab 01/20/20 hydrocodone 5 mg-acetaminophen 325 1 tab PO Q6H PRN #10 tab 08/18/21 mg tablet lidocaine 5 % topical patch 1 patch TOPICAL DAILY #30 ea 08/18/21 Allergies Allergy/AdvReac Type Severity Reaction Status Date / Time aspirin [ASPIRIN] Allergy Unknown UNK Verified 01/20/20 11:11 Review of Systems Review of Systems: Constitutional : No Weight loss, No Fever, No Chills, ENT/Mouth : No Hearing loss, No Ear Pain, No Nasal Congestion, No Sinus Pain, No Hoarseness, No sore throat, No Rhinorrhea, No Swallowing Difficulty Cardiovascular : No Chest Pain, No SOB Respiratory : No Cough, No Dyspnea Gastrointestinal : No Nausea, No Vomiting, No Diarrhea, No abdominal Pain, No Hematochezia, No Melena Genitourinary : No Dysuria, No Urinary Frequency, No Hematuria, No Urinary Incontinence, Musculoskeletal : positive back pain Skin : No Skin Lesions, No rash Neuro : No Weakness, No Numbness, No Paresthesias, no loss of bowel or bladder incontinence, no saddle anesthesia All other systems reviewed and are negative [facility] Past Medical History Medical History Arthritis Asthma Hypertension Osteoporosis Surgical History Previous back surgery Social History Social History Alcohol intake: never Patient Tobacco Use Status: Tobacco use Unknown Advance Directives: No Advance Directives Information Provided: No Physical Exam Vital Signs: Vital Signs: Last Vital Signs Temp 97.8 F 08/18/21 18:03 Pulse 74 08/18/21 18:03 Resp 18 08/18/21 18:03 BP 141/78 H 08/18/21 18:03 Pulse Ox 98 08/18/21 18:03 BMI result Body Mass Index 26.9 Appearance: Alert. Oriented X3. No acute distress. Eyes: Pupils equal, round and reactive to light. ENT: Pharynx normal. Neck: Normal inspection. Neck supple. CVS: Normal heart rate and rhythm. Pulses normal. Respiratory: No respiratory distress. Breath sounds normal. Abdomen: Soft and nontender. Back: ttp along lower lumbar paraspinals Skin: Skin warm and dry. Normal skin color. Normal skin turgor. Extremities: No lower extremity edema. No calf ttp Neuro: Oriented X 3. No motor deficit. No sensory deficit. SILT inner thigh L5 5/5 bilaterally Course Course Course Narrative: no acute findings on CT scan, UA negative, feels better stable for DC MDM - Back Pain/Injury MDM Narrative Medical decision making narrative: 71 yo female with hx of anemia, HTN, asthma, DAGOBERTO, back pain, at this time c/o back pain without CE symptoms she is distal NV intact it is reproduceable in nature. At this time will obtain UA, treat pain, and obtain CT scan for mass/renal colic. Dispo per results and findings. Lab Data Labs: Lab Results 08/18/21 Range/Units 22:37 Urine Color YELLOW Urine Appearance CLEAR Urine pH 6.0 (5.0-8.0) Ur Specific Hershey >= 1.030 H (1.005-1.025) Urine Protein NEG (NEG-TRACE) MG/DL Urine Glucose (UA) NEG (NEG) MG/DL Urine Ketones NEG (NEG) MG/DL Urine Blood TRACE (NEG) Urine Nitrite NEG (NEG) Ur Leukocyte Esterase TRACE H (NEG) Urine RBC 0-2 (0) /HPF Urine WBC 0-2 (0-4) /HPF Ur Squamous Epith Cells 1+ /LPF Urine Bacteria 1+ /LPF Discharge Plan Discharge Clinical Impression: Acute lumbar back pain Qualifiers: Back pain laterality: bilateral Sciatica presence: without sciatica Qualified Code(s): M54.50 - Low back pain, unspecified Patient Disposition: Home, Self-Care Instructions: Back Pain (ED) Additional Instructions: return to ED for any worsening symptoms or concerns no new fractures on CT scan Prescriptions: New hydrocodone-acetaminophen 5-325 mg tablet 1 tab PO Q6H PRN (Reason: pain) Qty: 10 0RF Rx Instructions: partial fill okay lidocaine 5 % adhesive patch,medicated 1 patch topical DAILY Qty: 30 0RF Rx Instructions: leave on most painful area for up to 12 hrs No Action cyclobenzaprine 10 mg tablet 10 mg PO TID PRN (Reason: muscle spasm) Qty: 14 0RF meloxicam 15 mg tablet 1 tab PO DAILY 0RF sertraline 100 mg tablet 1 tab PO DAILY 0RF meclizine 12.5 mg tablet 1 tab PO TID 0RF lisinopril 10 mg tablet 1 tab PO DAILY 0RF omeprazole 20 mg capsule,delayed release(DR/EC) 1 cap PO DAILY 0RF gabapentin 100 mg capsule 2 cap PO TID 0RF sertraline 50 mg tablet 1 tab PO DAILY 0RF loratadine 10 mg tablet 1 tab PO DAILY PRN (Reason: allergies) 0RF oxycodone 5 mg tablet 1 tab PO QID PRN (Reason: pain) 0RF Referrals: Johanna Burris MD [Primary Care Provider] - 3 days (if not better) Print Language: Citizen Of [place]
[2021-08-18 22:54] LABS: Appearance Urine CLEAR; Color Urine YELLOW; Glucose Urine UA NEG (NEG); Leukocyte Esterase Urine TRACE (NEG); Nitrite Urine NEG (NEG); Specific Gravity - Urine >= 1.030 (1.005-1.025); UACC Culture Trigger NO; Urine Blood TRACE (NEG); Urine Ketones NEG (NEG); Urine Protein NEG (NEG-TRACE)
[2021-08-18 23:02] LABS: Bacteria Urine 1+ /LPF; RBC Urine 0-2 /HPF (0); Squamous Epithelial Cell Urine 1+ /LPF; WBC Urine 0-2 /HPF (0-4)
== END 2021-08-18 23:55 | disposition home or self-care (01) ==
PROVIDERS: Emergency Provider Emergency Medicine; PCP Internal Medicine
DX: M54.50 Low back pain, unspecified (principal); R06.02 Shortness of breath; R10.9 Unspecified abdominal pain; I10 Essential (primary) hypertension; J45.909 Unspecified asthma, uncomplicated
CPT/HCPCS: 71046; 74176; 81001; 99282; 99284

== ENCOUNTER 2021-08-25 10:56 | Outpatient (REF) | payer OTHER, SELFPAY | END 2021-08-25 10:57 | disposition home or self-care (01) | LOC: HO.MDS 10:56 | PROVIDERS: Visit Provider Internal Medicine Medical Oncology | DX: D50.9 Iron deficiency anemia, unspecified (principal) | CPT/HCPCS: 96365; J2916 ==

== ENCOUNTER 2021-08-27 21:06 | Emergency (ER) | payer OTHER, MEDICAID, SELFPAY ==
--- NOTE | ~2021-08-27 | XR_ITS ---
EXAMINATION: XR THORACIC SPINE CLINICAL INFORMATION: Lower thoracic spine pain COMPARISON: Chest x-ray dated 08/18/2021 TECHNIQUE: AP and lateral views FINDINGS: The bones are demineralized. Thoracic kyphosis redemonstrated. Vertebral plasty cement is present within T11. Stable mild compression deformity of the L2 vertebral body. There is a anterior wedge compression fracture at T8 which appears new, or slightly worse from the prior chest x-ray. Endplate osteophytes present throughout the thoracic spine. XR/XR thoracic spine 2V IMPRESSION: New anterior wedge compression deformity of the T8 vertebral body resulting in 30% height loss anteriorly.
[2021-08-27 21:15] VITALS: BP 134/68; PULSE 87; RESP 20; TEMP 36.2; O2SAT 96; BMI 26.7
--- NOTE | 2021-08-28 00:40 | ED.BACK ---
HPI - Back Pain/Injury General Chief Complaint: Back Pain/Injury Stated Complaint: back pain Time Seen by Provider: 08/28/21 00:39 Source: patient Mode of arrival: ambulatory Limitations: no limitations History of Present Illness HPI Narrative: Patient chronic back pain history of compression fracture status post vertebroplasty complaining of back pain mostly in lower thoracic and midthoracic area patient was seen here last week for same issues took oxycodone were not helping. No radiation of pain no paresthesias or weakness no history of trauma no hand weakness, patient was seen here on 08/[address] abdomen was negative and chest x-ray was negative Related Data Home Medications Medication Instructions Recorded Confirmed gabapentin 100 mg capsule 2 cap PO TID 07/12/21 07/12/21 lisinopril 10 mg tablet 1 tab PO DAILY 07/12/21 07/12/21 loratadine 10 mg tablet 1 tab PO DAILY PRN allergies 07/12/21 07/12/21 meclizine 12.5 mg tablet 1 tab PO TID 07/12/21 07/12/21 meloxicam 15 mg tablet 1 tab PO DAILY 07/12/21 07/12/21 omeprazole 20 mg capsule,delayed 1 cap PO DAILY 07/12/21 07/12/21 release oxycodone 5 mg tablet 1 tab PO QID PRN pain 07/12/21 07/12/21 sertraline 100 mg tablet 1 tab PO DAILY 07/12/21 07/12/21 sertraline 50 mg tablet 1 tab PO DAILY 07/12/21 07/12/21 Previous Rx's Medication Instructions Recorded cyclobenzaprine 10 mg tablet 10 mg PO TID PRN muscle spasm #14 01/20/20 tabs hydrocodone 5 mg-acetaminophen 325 1 tab PO Q6H PRN pain #10 tabs 08/18/21 mg tablet lidocaine 5 % topical patch 1 patch topical DAILY #30 ea 08/18/21 oxycodone-acetaminophen 5 mg-325 1 tab PO Q6H PRN pain #30 tabs 08/28/21 mg tablet (Percocet) Allergies Allergy/AdvReac Type Severity Reaction Status Date / Time aspirin [ASPIRIN] Allergy Unknown UNK Verified 08/27/21 21:21 Review of Systems Review of Systems: Yes all other systems are reviewed and are negative PMFSH Past Medical History Medical History Arthritis Asthma Hypertension Osteoporosis Surgical History Previous back surgery Social History Social History Alcohol intake: never Patient Tobacco Use Status: Tobacco use Unknown Advance Directives: No Physical Exam Vital Signs: Vital Signs: Last Vital Signs Temp 97.2 F 08/27/21 21:15 Pulse 87 08/27/21 21:15 Resp 20 08/27/21 21:15 BP 134/68 08/27/21 21:15 Pulse Ox 96 08/27/21 21:15 O2 Del Method 08/27/21 21:15 BMI result Body Mass Index 26.7 Appearance: Alert. Oriented X3. No acute distress. Eyes: PERRLA, No Nystagmus ENT: Pharynx normal. Oral Mucosa moist Neck: Normal inspection. Neck supple. CVS: Normal heart rate and rhythm. Pulses normal. Respiratory: No respiratory distress. Equal air entry bilateral, no wheezing/rales/rhonchi Abdomen: Soft and nontender. Bowel sounds are present, no mass palpable, no CVA tenderness Skin: Skin warm and dry. Normal skin color. Normal skin turgor. Extremities: No lower extremity edema. No calf tenderness Back: Lower thoracic spine tenderness diffuse lumbar spine tenderness with para spinal spasm Neuro: Oriented X 3. No motor deficit. No sensory deficit.No cerebellar signs , cranial nerves II-XII intact MDM - Back Pain/Injury MDM Narrative Medical decision making narrative: Patient history of compression fracture T11 status post vertebroplasty complaining of diffuse back pain x-ray of thoracic spine showed compression fracture of T8. Patient advised to follow-up with radiologist for vertebroplasty pain medication was given Medical Records Attestation: I reviewed the patient's medical records. Discharge Plan Discharge Clinical Impression: Compression fracture of thoracic vertebrae, non-traumatic Patient Disposition: Home, Self-Care Instructions: Vertebral Compression Fracture (ED) Additional Instructions: Take pain medication as prescribed You have new compression fracture of thoracic 8 vertebra Continue Lidoderm patch for pain Follow-up with radiologist/Neurosurgery for vertebroplasty Prescriptions: New oxycodone-acetaminophen [Percocet] 5-325 mg tablet 1 tab PO Q6H PRN (Reason: pain) Qty: 30 0RF Rx Instructions: Partial Fill upon patient request. No Action cyclobenzaprine 10 mg tablet 10 mg PO TID PRN (Reason: muscle spasm) Qty: 14 0RF hydrocodone-acetaminophen 5-325 mg tablet 1 tab PO Q6H PRN (Reason: pain) Qty: 10 0RF Rx Instructions: partial fill okay lidocaine 5 % adhesive patch,medicated 1 patch topical DAILY Qty: 30 0RF Rx Instructions: leave on most painful area for up to 12 hrs meloxicam 15 mg tablet 1 tab PO DAILY sertraline 100 mg tablet 1 tab PO DAILY meclizine 12.5 mg tablet 1 tab PO TID lisinopril 10 mg tablet 1 tab PO DAILY omeprazole 20 mg capsule,delayed release(DR/EC) 1 cap PO DAILY gabapentin 100 mg capsule 2 cap PO TID sertraline 50 mg tablet 1 tab PO DAILY loratadine 10 mg tablet 1 tab PO DAILY PRN (Reason: allergies) oxycodone 5 mg tablet 1 tab PO QID PRN (Reason: pain) Referrals: Slade Vasquez MD [Physician] - 1 week Sherrill Pearson MD [Physician] - 1 week
[2021-08-28] MEDS: Cyclobenzaprine HCl 10 MG TABLET PO (01:23)
== END 2021-08-28 02:29 | disposition home or self-care (01) ==
PROVIDERS: Emergency Provider Internal Medicine
DX: M48.54XA Collapsed vertebra, not elsewhere classified, thoracic region, initial encounter for fracture (principal); I10 Essential (primary) hypertension; J45.909 Unspecified asthma, uncomplicated
CPT/HCPCS: 72070; 99283

== ENCOUNTER 2021-08-30 16:20 | Outpatient (REF) | payer OTHER, MEDICAID, SELFPAY | END 2021-08-30 16:21 | disposition home or self-care (01) | LOC: HO.MRI 16:20 | PROVIDERS: Visit Provider Internal Medicine | DX: Z13.89 Encounter for screening for other disorder (principal) ==

== ENCOUNTER 2021-09-01 10:56 | Outpatient (REF) | payer OTHER, MEDICAID, SELFPAY | END 2021-09-01 10:57 | disposition home or self-care (01) | LOC: HO.MDS 10:56 | PROVIDERS: Visit Provider Internal Medicine Medical Oncology | DX: D50.9 Iron deficiency anemia, unspecified (principal) | CPT/HCPCS: 96365; J2916 ==

== ENCOUNTER 2021-09-01 13:30 | Outpatient (REF) | payer OTHER, MEDICAID, SELFPAY ==
--- NOTE | ~2021-09-01 | MR_ITS ---
EXAMINATION: MR LUMBAR SPINE WITHOUT AND WITH CONTRAST CLINICAL INFORMATION: Low back pain. Evaluate for L2 vertebral fracture. COMPARISON: Lumbar spine radiograph 06/28/2019. CT abdomen and pelvis 08/18/2021. TECHNIQUE: Multiplanar MR imaging of the lumbar spine was performed without and with contrast. A total of 7 mL Gadavist was utilized for this examination. FINDINGS: Although the partially included within the pmpwh-bn-uktj of this examination there are compression deformities of the T10 and T11 vertebral bodies. There is bone cement material within the T11 vertebral body. Subtle bone marrow edema adjacent to the upper T10 endplate that may represent changes associated with an acute to subacute compression fracture. There is a chronic compression deformity of the L2 vertebral body with impaction of the lower endplate resulting in 30% vertebral height loss centrally. No retropulsion of posterior cortex an no canal compromise at this level. There is slight grade 1 anterolisthesis of L4 on L5. There is disc desiccation at multiple levels without substantial loss of intervertebral disc height. The tip of the conus medullaris is located at L1. No mass effect on the conus. Visualized distal cord signal intensity is normal. At L1-L2 there is a tiny right central protrusion. No canal stenosis. No mass effect on the traversing or foraminal nerve roots. At L2-L3 there is a slightly bulging disc. No canal stenosis. No mass effect on the traversing or foraminal nerve roots. At L3-L4 the annular contour is normal. No canal or neuroforaminal compromise. At L4-L5 there is a pseudodisc bulge. Advanced facet degenerative change. No canal stenosis. No mass effect on the traversing or foraminal nerve roots. At L5-S1 the annular contour is normal. Bilateral facet degenerative change. No canal stenosis. No mass effect on traversing or foraminal nerve roots. Limited visualization of the retroperitoneal anatomy reveals a few well marginated benign-appearing cystic lesions within both kidneys. Psoas and paraspinal muscle groups are symmetric. MR/MR lumbar spine wo/w con IMPRESSION: Although only partially included within [id number] of this examination there are compression fractures of the T10 and T11 vertebral bodies. There is bone cement material presumably representing chronic changes of a vertebral augmentation at T11. There is bone marrow edema adjacent to the upper T10 endplate that could suggest the presence of an acute to subacute compression fracture at this level. The compression deformity of the L2 vertebral body is chronic with impaction of the lower endplate resulting in 30% vertebral height loss centrally. There is grade 1 anterolisthesis of L4 on L5 related to advanced facet degenerative changes at this level. Otherwise unremarkable examination in that there is no canal stenosis and no mass effect on the traversing or foraminal nerve roots.
== END 2021-09-01 13:31 | disposition home or self-care (01) ==
LOC: HO.MRI 13:30
PROVIDERS: Visit Provider Internal Medicine
DX: M81.0 Age-related osteoporosis without current pathological fracture (principal); M54.9 Dorsalgia, unspecified
CPT/HCPCS: 72158; A9585

== ENCOUNTER 2021-09-08 09:56 | Outpatient (REF) | payer OTHER, MEDICAID, SELFPAY | END 2021-09-08 09:57 | disposition home or self-care (01) | LOC: HO.MDS 09:56 | PROVIDERS: Visit Provider Internal Medicine Medical Oncology | DX: D50.9 Iron deficiency anemia, unspecified (principal) | CPT/HCPCS: 96365; J2916 ==

== ENCOUNTER 2021-09-15 11:27 | Outpatient (REF) | payer OTHER, MEDICAID, SELFPAY ==
[2021-09-15 12:25] LABS: MANUAL DIFF FLAG NO
[2021-09-15 12:27] LABS: Basophils Absolute Auto 0.1 X10*3/uL (0.0-0.2); Basophils Percent Auto 0.6 % (0-2); Eosinophils Absolute Auto 0.2 X10*3/uL (0.0-0.4); Eosinophils Percent Auto 1.7 % (0-4); Hematocrit 36.6 % (37.0-47.0); Hemoglobin 11.7 g/dl (12.0-16.0); Imm Gran Abs Auto 0.15 X10*3/uL (0.00-0.03); Imm Gran Pct Auto 1.2 % (0.0-0.4); Lymphocytes Absolute Auto 3.2 X10*3/uL (1.2-4.9); Lymphocytes Percent Auto 26.5 % (20-40); Mean Corpuscular Hemoglobin 27.1 pg (27.0-33.0); Mean Corpuscular Volume 84.9 fL (80.0-98.0); Mean Platelet Volume 8.6 fL (9.4-12.3); Monocytes Absolute Auto 1.3 X10*3/uL (0.1-1.2); Monocytes Percent Auto 10.9 % (2-11); Neutrophils Absolute Auto 7.1 x10*3/uL (2.0-8.3); Neutrophils Percent Auto 59.1 % (45-73); Platelet Count 268 X10*3/uL (160-400); Red Blood Count 4.31 X10*6/uL (4.20-5.50); Red Cell Distribution Width 21.4 % (11.0-16.0); White Blood Count 12.1 X10*3/uL (4.8-10.8)
== END 2021-09-15 11:28 | disposition home or self-care (01) ==
LOC: HO.MDS 11:27
PROVIDERS: Visit Provider Internal Medicine Medical Oncology
DX: D50.9 Iron deficiency anemia, unspecified (principal)
CPT/HCPCS: 36415; 85025; 96365; J2916

== ENCOUNTER 2021-09-25 08:59 | Outpatient (REF) | payer OTHER, MEDICAID, SELFPAY ==
[2021-09-25 09:16] LABS: MANUAL DIFF FLAG NO
[2021-09-25 09:29] LABS: Basophils Percent Auto 0.4 % (0-2); Eosinophils Absolute Auto 0.3 X10*3/uL (0.0-0.4); Eosinophils Percent Auto 2.8 % (0-4); Hematocrit 42.1 % (37.0-47.0); Hemoglobin 13.4 g/dl (12.0-16.0); Imm Gran Pct Auto 0.9 % (0.0-0.4); Lymphocytes Absolute Auto 2.9 X10*3/uL (1.2-4.9); Lymphocytes Percent Auto 27.5 % (20-40); Mean Corpuscular HGB Conc 31.8 g/dl (31.0-35.0); Mean Corpuscular Volume 84.7 fL (80.0-98.0); Mean Platelet Volume 8.6 fL (9.4-12.3); Monocytes Percent Auto 9.1 % (2-11); Neutrophils Absolute Auto 6.3 x10*3/uL (2.0-8.3); Neutrophils Percent Auto 59.3 % (45-73); Platelet Count 375 X10*3/uL (160-400); Red Blood Count 4.97 X10*6/uL (4.20-5.50); Red Cell Distribution Width 20.9 % (11.0-16.0); White Blood Count 10.7 X10*3/uL (4.8-10.8)
[2021-09-25 09:52] LABS: Alanine Aminotransferase 12 U/L (0-31); Alkaline Phosphatase 134 U/L (39-117); Anion Gap 11 (12-20); Aspartate Amino Transferase 17 U/L (5-31); Bilirubin Total 0.2 mg/dL (0.0-1.0); Blood Urea Nitrogen 17 mg/dL (9-16); Calcium 9.4 mg/dL (8.4-10.2); Carbon Dioxide 28 mmol/L (22-29); Chloride 102 mmol/L (96-108); Cholesterol 235 mg/dL; Estimated Glomerular Filt Rate > 60; Glucose Random 96 mg/dL (60-115); HDL Cholesterol 77 mg/dL; LDL Cholesterol Calculated 132 mg/dl; Sodium 136 mmol/L (135-145); Total Protein 6.6 g/dL (6.5-8.0); Triglycerides 133 mg/dL
[2021-09-25 10:12] LABS: Ferritin 328 ng/mL (10-250)
== END 2021-09-25 09:00 | disposition home or self-care (01) ==
LOC: HO.LAB 08:59
PROVIDERS: PCP Internal Medicine; Visit Provider Internal Medicine
DX: D50.8 Other iron deficiency anemias (principal); G47.00 Insomnia, unspecified; F32.A Depression, unspecified; Z91.19 Patient's noncompliance with other medical treatment and regimen
CPT/HCPCS: 36415; 80053; 80061; 82728; 85025

== ENCOUNTER → 2021-10-04 13:13 | Outpatient (BNVA) | payer OTHER, MEDICAID, SELFPAY | PROVIDERS: PCP Internal Medicine; Visit Provider Nurse Practitioner Family | DX: S22.000A Wedge compression fracture of unspecified thoracic vertebra, initial encounter for closed fracture (principal); M62.838 Other muscle spasm | CPT/HCPCS: 99202 ==

== ENCOUNTER 2021-10-06 18:28 | Outpatient (REF) | payer OTHER, MEDICAID, SELFPAY ==
--- NOTE | ~2021-10-06 | MR_ITS ---
EXAMINATION: MR THORACIC SPINE WITHOUT CONTRAST CLINICAL INFORMATION: Wedge compression fracture. COMPARISON: Lumbar spine MRI 09/01/2021. TECHNIQUE: MRI of the thoracic spine was obtained using routine sequences without contrast. FINDINGS: Multiple compression fractures are noted including the following: T6: Acute edematous compression fracture with 10% height loss. T7: Acute edematous compression fracture with 15% height loss. T8: Acute edematous compression fracture with 65% height loss. No retropulsion. T10: Chronic superior endplate compression fracture with 50% height loss. T11: Chronic superior endplate compression fracture with 30% height loss. Vertebroplasty changes are seen at this level. There is accentuation of the normal thoracic kyphosis. The alignment appears preserved. Small disc protrusions are seen at T8-T9, T9-T10, and T11-T12 without significant narrowing of the spinal canal. The neural foramina remain patent. The cord signal appears normal. A 1.9 cm nodule is seen within the medial aspect of the right upper lung, possibly within the superior segment of the right lower lobe. There is mild prominence of the right-sided mediastinal tissues potentially representing adenopathy. A large hiatal hernia is demonstrated. MR/MR thoracic spine wo con IMPRESSION: Incidentally noted 1.9 cm nodule within the medial aspect of the right upper lung concerning for neoplasm. Dedicated chest CT is recommended. Possible right-sided mediastinal adenopathy. Acute edematous compression fractures are seen at T6, T7, and T8. The T8 fracture demonstrates 65% height loss but no significant retropulsion. No spinal canal stenosis is seen. These results will be called in to the ordering clinician's office.
== END 2021-10-06 18:29 | disposition home or self-care (01) ==
LOC: HO.MRI 18:28
PROVIDERS: Visit Provider Nurse Practitioner Family
DX: S22.000A Wedge compression fracture of unspecified thoracic vertebra, initial encounter for closed fracture (principal)
CPT/HCPCS: 72146

== ENCOUNTER 2021-10-17 09:27 | Outpatient (REF) | payer OTHER, MEDICAID, SELFPAY ==
--- NOTE | ~2021-10-17 | CT_ITS ---
EXAMINATION: CT CHEST WITH CONTRAST CLINICAL INFORMATION: Follow-up lung nodules seen on MRI the thoracic spine COMPARISON: Previous chest x-ray most recent August 2021, MR of the thoracic and lumbar spine August and September [address] of the abdomen and pelvis August 2021 TECHNIQUE: Multidetector volumetric CT imaging of the chest was obtained after the administration of 65 mL of Omnipaque 350 intravenous contrast without immediate adverse reactions. Axial MIP volume rendering provided. Sagittal and coronal reformatted images were obtained. This CT examination was performed using dose optimization techniques as appropriate, variously including the following: *Automated exposure control *Adjustment of mA and/or kV according to patient size (this includes techniques or standardized protocols for targeted exams where dose is matched to indication/reason for exam; i.e. extremities or head) *Use of iterative reconstruction technique DLP: 102 mGy-cm FINDINGS: LUNGS: There is evidence of emphysema. There is a 1.5 x 1.7 cm spiculated nodule the right lung apex axial image 33 series 7. There is a 1.5 x 1.7 cm peripheral or subpleural left upper lobe nodule axial image 72 series 7. There is a 3 mm calcified right upper lobe nodule axial image 29 series 7. There is a 2 mm peripheral or subpleural right upper lobe nodule axial image 84 series 7. MEDIASTINUM: The heart does not appear enlarged. There is a large esophageal hernia. There is no pericardial effusion. There is diffuse mediastinal and bilateral hilar lymphadenopathy. Largest lymph nodes are a right hilar lymph node measuring 1.7 cm in short axis and left superior hilar AP window joel mass measuring 2 cm in short axis. The thoracic aorta is normal in caliber. There is a normal anatomic variant or a replaced right subclavian artery. PLEURA: There is no pleural effusion. No pleural mass or thickening. AXILLA: There are small bilateral axillary lymph nodes. No chest wall mass is seen. UPPER ABDOMEN: There is a 3 cm cyst in the upper pole of the left kidney. OSSEOUS STRUCTURES: There are multiple compression fractures of the mid and lower thoracic spine not appreciably changed from recent MRI September 2021. CT/CT chest w con IMPRESSION: Emphysema. Bilateral upper lobe nodules worrisome for neoplasm. Enlarged mediastinal and bilateral hilar nodes. Esophageal hernia. Stable thoracic vertebral body compression fractures. 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 Fleischner guidelines were followed.
[2021-10-17] MEDS: iohexoL 350 MG/ML 100 ML INFUS..BTL IV (10:28)
== END 2021-10-17 09:28 | disposition home or self-care (01) ==
LOC: HO.CT 09:27
PROVIDERS: Absent Provider Nurse Practitioner Family; Visit Provider Internal Medicine Medical Oncology
DX: R91.1 Solitary pulmonary nodule (principal)
CPT/HCPCS: 71260; Q9967

== ENCOUNTER → 2021-10-20 10:00 | Outpatient (BNVA) | payer OTHER, MEDICAID, SELFPAY | PROVIDERS: PCP Internal Medicine; Visit Provider Nurse Practitioner Family | DX: S22.000A Wedge compression fracture of unspecified thoracic vertebra, initial encounter for closed fracture (principal); M62.838 Other muscle spasm | CPT/HCPCS: 99212 ==

== ENCOUNTER → 2021-11-03 08:35 | Outpatient (BNVA) | payer OTHER, MEDICAID, SELFPAY | PROVIDERS: PCP Internal Medicine; Visit Provider Surgery | DX: R91.1 Solitary pulmonary nodule (principal); R59.0 Localized enlarged lymph nodes; R06.02 Shortness of breath; Z79.899 Other long term (current) drug therapy | CPT/HCPCS: 99202 ==

== ENCOUNTER → 2021-11-07 09:45 | Outpatient (BNVA) | payer OTHER, MEDICAID, SELFPAY | PROVIDERS: PCP Internal Medicine; Visit Provider Internal Medicine Endocrinology, Diabetes & Metabolism | DX: M81.0 Age-related osteoporosis without current pathological fracture (principal) | CPT/HCPCS: 99202 ==

== ENCOUNTER 2021-11-07 10:55 | Outpatient (REF) | payer OTHER, MEDICAID, SELFPAY ==
[2021-11-07 13:59] LABS: Phosphorus 3.9 mg/dL (2.7-4.5)
[2021-11-07 14:25] LABS: Free T4 (Free Thyroxine) 1.13 ng/dL (0.71-1.85); Thyroid Stimulating Hormone 0.42 uIU/mL (0.32-4.0)
[2021-11-11 19:25] LABS: Prot Elec - Albumin 3.8 g/dL (3.8-4.8); Prot Elec - Alpha1 0.3 g/dL (0.2-0.3); Prot Elec - Alpha2 0.7 g/dL (0.5-0.9); Prot Elec - Beta 1 0.4 g/dL (0.4-0.6); Prot Elec - Beta 2 0.4 g/dL (0.2-0.5); Prot Elec - Gamma 0.9 g/dL (0.8-1.7); Prot Elec - Total Protein 6.4 g/dL (6.1-8.1)
== END 2021-11-07 10:56 | disposition home or self-care (01) ==
LOC: HO.10HDL 10:55
PROVIDERS: Visit Provider Internal Medicine Endocrinology, Diabetes & Metabolism
DX: M81.0 Age-related osteoporosis without current pathological fracture (principal)
CPT/HCPCS: 82306; 84100; 84165; 84439; 84443; 86335

== ENCOUNTER 2021-11-10 11:34 | Outpatient (REF) | payer OTHER, MEDICAID, SELFPAY ==
[2021-11-10 12:23] LABS: Total Volume 24 Hour Urine 700 mL
[2021-11-10 12:42] LABS: Creatinine, 24Hr Urine 0.8 G/Day (1.0-2.0); Creatinine, mg/dL 110.16
[2021-11-13 23:11] LABS: Calcium, 24 Hr Urine 149 mg/24 h; Calcium/Creatinine Ratio 192 mg/g creat (30-275); Creatinine 24Hr Urine 0.78 g/24 h (0.50-2.15)
== END 2021-11-10 11:35 | disposition home or self-care (01) ==
LOC: HO.LNP 11:34
PROVIDERS: Visit Provider Internal Medicine Endocrinology, Diabetes & Metabolism
DX: M81.0 Age-related osteoporosis without current pathological fracture (principal)
CPT/HCPCS: 82340; 82570

== ENCOUNTER 2021-11-22 14:54 | Outpatient (REF) | payer OTHER, MEDICAID, SELFPAY ==
--- NOTE | 2021-11-22 16:27 | PFT_ITS ---
FLOWS: FEV1 85% of predicted at 1.27 L. FVC 92% of predicted at 1.86 L. FEV1 to FVC ratio of 0.68. No bronchodilator response. LUNG VOLUMES: The patient was unable to perform lung volume maneuvers. Diffusion capacity is moderately decreased. IMPRESSION: Mild obstructive ventilatory defect with no bronchodilator response. The patient was unable to perform lung volume maneuvers. Decreased diffusion capacity suggests emphysema. MD ROSEMARY Medina/MODL / [id number]
== END 2021-11-22 14:55 | disposition home or self-care (01) ==
LOC: HO.RESP 14:54
PROVIDERS: PCP Internal Medicine; Visit Provider Surgery
DX: Z01.818 Encounter for other preprocedural examination (principal)
CPT/HCPCS: 94060; 94729

== ENCOUNTER → 2021-11-27 08:22 | Outpatient (BNVA) | payer OTHER, SELFPAY | PROVIDERS: PCP Internal Medicine; Referring Provider Internal Medicine; Visit Provider Physician Assistant | DX: Z01.818 Encounter for other preprocedural examination (principal); D64.9 Anemia, unspecified; R10.12 Left upper quadrant pain | CPT/HCPCS: 99202 ==

== ENCOUNTER 2021-11-28 09:03 | Outpatient (REF) | payer OTHER, SELFPAY ==
--- NOTE | ~2021-11-28 | MM_ITS ---
EXAMINATION: BONE DENSITOMETRY CLINICAL INDICATION: Osteoporosis. Compression fractures T6, T7, T8. COMPARISON: MR thoracic spine 10/06/2021. TECHNIQUE: Using a [employer] DXA System (software version: 13.1) manufactured by [employer], dual-energy x-ray absorptiometry was performed of the lumbar spine and left hip. The images are of good technical quality. Summary results are attached. FINDINGS: AP SPINE L1-L4: BMD 0.729 g/cm2, Z-score -2.0, T-score -3.8, osteoporosis. LEFT FEMUR, NECK: BMD 0.719 g/cm2, Z-score -0.5, T-score -2.3, osteopenia. LEFT FEMUR, TOTAL: BMD 0.746 g/cm2, Z-score -0.5, T-score -2.1, osteopenia. IDENTIFIED RISK FACTORS: Menopause, height loss, history of fracture (adult), low calcium intake, osteoporosis. HISTORY OF FRACTURE: Thoracic spine. MEDICATIONS: None listed. MM/XR DEXA axial skeleton IMPRESSION: 1. DIAGNOSIS: Severe osteoporosis based on the lowest T-score value of -3.8 in the lumbar spine and history of acute edematous compression fractures thoracic spine applying World Health Organization criteria. 2. 10-YEAR FRACTURE RISK PREDICTION, FRAX: According to the guidelines, FRAX calculation should only be performed on patients in the osteopenia bone density category. Therefore, FRAX was not performed on this patient. 3. Treatment Recommendations: NOF guidelines recommend consideration for treatment in postmenopausal women and men age 50 and older presenting with the following: -A hip or vertebral (clinical or morphometric) fracture. -T-score less than or equal to -2.5 at the femoral neck or spine after appropriate evaluation to exclude secondary causes. -Low bone mass at the hip or spine and a 10-year fracture probability by FRAX of greater than or equal to 3% for hip fracture or greater than or equal to 20% for major osteoporotic fracture based on the [place] adapted WHO algorithm. 4. Other Recommendations: All treatment decisions require clinical judgment and consideration of individual patient factors, including patient preferences, comorbidities, previous drug use, risk factors not captured in the FRAX model (e.g. frailty, falls, vitamin D deficiency, increased bone turnover, interval significant decline in bone density) and possible under or overestimation of fracture risk by FRAX. Additional medical evaluation for secondary cause of low bone mineral density may be appropriate. FUTURE SCAN RECOMMENDATION: People with diagnosed cases of osteoporosis or at high risk for fracture should have regular bone mineral density tests. For patients eligible for Medicare, routine testing is allowed once every 2 years. The testing frequency can be increased to one year for patients who have rapidly progressing disease, those who are receiving or discontinuing medical therapy to restore bone mass, or have additional risk factors.
== END 2021-11-28 09:04 | disposition home or self-care (01) ==
LOC: HO.MAMMO 09:03
PROVIDERS: PCP Internal Medicine; Visit Provider Internal Medicine Endocrinology, Diabetes & Metabolism
DX: Z13.820 Encounter for screening for osteoporosis (principal); M81.0 Age-related osteoporosis without current pathological fracture; Z78.0 Asymptomatic menopausal state
CPT/HCPCS: 77080

== ENCOUNTER → 2021-12-15 09:17 | Outpatient (BNVA) | payer OTHER, SELFPAY | PROVIDERS: PCP Internal Medicine; Visit Provider Internal Medicine Endocrinology, Diabetes & Metabolism | DX: M81.0 Age-related osteoporosis without current pathological fracture (principal) | CPT/HCPCS: 99212 ==

== ENCOUNTER 2021-12-26 11:40 | Outpatient (RCR) | payer MEDICARE, OTHER, MEDICAID, SELFPAY ==
[2021-07-12 14:13] VITALS: BP 150/70; PULSE 74; RESP 17; TEMP 36.4; O2SAT 94
--- NOTE | 2021-07-12 14:25 | PM.HEMONCCN ---
Subjective - Subjective Chief complaint: Consult for microcytic hypochromic anemia. Patient: new to practice Consult date: 07/12/21 Requesting Physician: guido Burris. Primary Care Provider: bhavya. Medical Summary: DIAGNOSIS: MICROCYTIC HYPOCHROMIC ANEMIA. HPI - Consult Narrative Reason for consult: Consult for: Microcytic hypochromic anemia. Narrative: Lety Harper is a pleasant 71 year old lady, who has been referred for anemia. CBC from 06/14/2021: WBC 10.5, HGB 8.7, HCT 29.9, MCV 73.1, PLT 360. She did receive a blood transfusion, 2 units back on April 29 and . FAMILY HISTORY: Denies any known family history of anemia or cancer. 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 She is . Has 3 children. She smoked 6-8 cigarettes a day quit 12 years ago. Denies alcohol. ROS: Her energy level is okay however it gets worst when the back pain comes on. It is in the lower back. He denies fever but she does get some chills and night sweats. Appetite is not that good. She has lost weight. She used to get migraine headaches but not recently. She denies chest pain. If he walks quickly she gets short of breath. She denies any cough. She gets abdominal pain. She was recently started on iron which makes it worst. Denies nausea. No diarrhea. She has had a colonoscopy. Denies dysuria or hematuria. She does get back pain and pain in her shoulders. Denies any focal weakness. She does have a little depression. Denies skin rashes nor pruritus. Review of Systems - Constitutional Reports system reviewed and no additional complaints, except as documented, Reports fatigue, Reports lack of energy, Reports malaise, Reports weight gain, Denies chills - Eyes Reports system reviewed and no additional complaints, except as documented - ENT Reports system reviewed and no additional complaints, except as documented - Cardiovascular Reports system reviewed and no additional complaints, except as documented - Respiratory Reports no additional respiratory complaints - Gastrointestinal Reports system reviewed and no additional complaints, except as documented - Genitourinary Reports no additional female genitourinary complaints - Musculoskeletal Reports system reviewed and no additional complaints, except as documented - Integumentary/Breasts Skin/Breast: Reports no additional skin complaints - Neurologic Reports system reviewed and no additional complaints, except as documented - Psychiatric Reports system reviewed and no additional complaints, except as documented - Endocrine Reports no additional endocrine complaints - Hematologic/Lymphatic Reports system reviewed and no additional complaints, except as documented - Allergic/Immunologic Reports system reviewed and no additional complaints, except as documented Oncology Screenings - ECOG Performance Status ECOG Performance Status: 0 [facility] Medical History: Medical History (Last Updated 05/28/21 @ 14:54 by Ángel Kilgore MD) Arthritis Asthma Hypertension Osteoporosis Functional capacity: independent ambulation Patient : No Surgical History: Surgical History (Last Reviewed 01/20/20 @ 11:23 by Irene Abebe DO) Previous back surgery Home Medications and Allergies Home Medications Medication Instructions Recorded Confirmed Type gabapentin 100 mg capsule 2 cap PO TID 07/12/21 07/12/21 History lisinopril 10 mg tablet 1 tab PO DAILY 07/12/21 07/12/21 History loratadine 10 mg tablet 1 tab PO DAILY PRN 07/12/21 07/12/21 History meclizine 12.5 mg tablet 1 tab PO TID 07/12/21 07/12/21 History meloxicam 15 mg tablet 1 tab PO DAILY 07/12/21 07/12/21 History omeprazole 20 mg capsule,delayed 1 cap PO DAILY 07/12/21 07/12/21 History release oxycodone 5 mg tablet 1 tab PO QID PRN 07/12/21 07/12/21 History sertraline 100 mg tablet 1 tab PO DAILY 07/12/21 07/12/21 History sertraline 50 mg tablet 1 tab PO DAILY 07/12/21 07/12/21 History Allergies Allergy/AdvReac Type Severity Reaction Status Date / Time aspirin [ASPIRIN] Allergy Unknown UNK Verified 01/20/20 11:11 Physical Exam Vital signs: Vital Signs Temp 97.6 F 07/12/21 14:13 Pulse 74 07/12/21 14:13 Resp 17 07/12/21 14:13 BP 150/70 H 07/12/21 14:13 Pulse Ox 94 07/12/21 14:13 - Constitutional Present: no acute distress - Routine HEENT Exam Head: Present: normocephalic Eye: Present: normal appearance ENT: Present: mucous membranes moist - Routine Neck Exam Present: supple - Routine Respiratory Exam Present: CTAB - Routine Cardiovascular Exam Cardiovascular: Present: RRR, S2 - Routine Abdominal Exam Present: soft, nontender - Routine Skin Exam Present: intact, normal turgor - Routine Neurological Exam Present: alert, oriented X3, vision grossly intact - Detailed Neurological Exam: Coma Scale Eye Opening: Spontaneous (4) Verbal Response: Oriented (5) Hem/Onc Consult Result - Labs CBC & Chem 7: 07/12/21 14:42 07/12/21 14:42 Assessment and Plan Patient Active problem list reviewed?: Yes (1) Microcytic hypochromic anemia Status: Acute Assessment and plan: This is a pleasant 71-year-old lady with history of microcytic hypochromic anemia. DIFFERENTIAL DIAGNOSIS: 1. IRON DEFICIENCY: Iron studies: A . These are consistent with iron deficiency anemia. She most likely has occult GI blood loss. 2. ANEMIA OF CHRONIC DISEASE: Could be coexisting. 3. HEMOLYTIC ANEMIA: Is in the differential. However LDH is normal 199. 4. UNDERLYING MYELO INFILTRATIVE DISORDER: MDS versus lymphoma versus multiple myeloma. 5. B12 FOLATE DEFICIENCY: Could be combined with iron deficiency. B12 level: 372, folate 14.7. PLAN: I will proceed with further workup. Check B12 and folate levels: 372/14.7. Check iron studies: . Transglut. IgA: <1. His LDH: 199. I will refer her for further GI evaluation. She could have diverticular bleed versus angiodysplasia versus malignancy. Will make further plans based upon the above results. In the meantime, she will be started on IV iron to bring her hemoglobin up and to help improve her oxygen carrying capacity. She received a dose on 07/25. Will continue weekly. Thank you, Cc: - Time Spent With Patient Time Spent with Patient (in minutes): 30
[2021-07-12 14:54] LABS: Baso%MD 0.6 %; Eos%MD 1.4 %; Hematocrit 29.9 % (37.0-47.0); Hemoglobin 8.6 g/dl (12.0-16.0); IG%MD 0.4 %; Lymph%MD 27.5 %; Mean Corpuscular HGB Conc 28.8 g/dl (31.0-35.0); Mean Corpuscular Hemoglobin 20.8 pg (27.0-33.0); Mean Corpuscular Volume 72.4 fL (80.0-98.0); Mean Platelet Volume 8.6 fL (9.4-12.3); Neut%MD 62.1 %; Platelet Count 410 X10*3/uL (160-400); Red Blood Count 4.13 X10*6/uL (4.20-5.50); Red Cell Distribution Width 17.2 % (11.0-16.0); White Blood Count 10.8 X10*3/uL (4.8-10.8)
[2021-07-12 15:16] LABS: Alanine Aminotransferase 13 U/L (0-31); Alkaline Phosphatase 100 U/L (39-117); Anion Gap 11 (12-20); Aspartate Amino Transferase 19 U/L (5-31); Bilirubin Total 0.4 mg/dL (0.0-1.0); Blood Urea Nitrogen 16 mg/dL (9-16); Calcium 9.3 mg/dL (8.4-10.2); Carbon Dioxide 27 mmol/L (22-29); Chloride 105 mmol/L (96-108); Estimated Glomerular Filt Rate > 60; Glucose Random 94 mg/dL (60-115); Iron 15 mcg/dL (30-160); Lactate Dehydrogenase 199 U/L (122-220); Percent Iron Saturation 3 % (15-50); Potassium 4.2 mmol/L (3.3-5.1); Sodium 139 mmol/L (135-145); Total Iron Binding Capacity 478 mcg/dL (228-428); Total Protein 6.7 g/dL (6.5-8.0); Unsaturated Iron Binding 463 ug/dL
[2021-07-12 15:33] LABS: Atypical Lymph Absolute Manual 0.3 x10*3/uL; Atypical Lymphs Percent Manual 3 % (0-6); Eosinophils Absolute Manual 0.1 X10*3/uL (0.0-0.4); Eosinophils Percent Manual 1 % (0-4); Lymphocytes Absolute Manual 2.7 X10*3/uL (1.2-4.9); Lymphocytes Percent Manual 25 % (20-40); Monocytes Absolute Manual 1.1 X10*3/uL (0.1-1.2); Monocytes Percent Manual 10 % (2-11); Neutrophils Percent Manual 61 % (45-73)
[2021-07-12 15:35] LABS: Hypochromasia 1+ (5-14) /OIF; RBC Morphology NOTED
[2021-07-12 15:36] LABS: Microcytosis 1+ (5-14) /OIF
[2021-07-12 15:37] LABS: Ovalocytes 1+ (5-14) /OIF
[2021-07-12 15:38] LABS: Ferritin 11 ng/mL (10-250)
[2021-07-12 15:45] LABS: Platelet Estimate NORMAL (NORMAL); Platelet Morphology Comment NORMAL
[2021-07-12 15:51] LABS: Band Neutrophils Percent 0 % (3-5); Neutrophils Absolute Manual 6.6 X10*3/uL (2.0-8.3)
[2021-07-12 16:41] LABS: Folate 14.7 ng/mL (> or = 4.0); Vitamin B12 372 pg/mL (200-900)
--- NOTE | 2021-07-12 18:30 | MHC.HEMONC ---
Pt was here for new pt consult, VSS, reported she's been having worsening back pain in the past 2 weeks, asked to sit in a recliner chair. [facility] groover and turner Ivelisse was there for [place]-language translation. Nurse reviewed pt's clinical summary, she said she was referred for anemia, she reports much fatigue, says she eats fine. Pt's most recent labs on 06/14/21 show a Hgb of 8.7. Dr. Velasquez was in to meet w/ pt, had labs drawn/reviewed, Hgb resulted at 8.[address] Velasquez will be ordering pt to receive IV Ferlicit, which she will order the following day. Pt was d/c'd w/ next hem f/u booked in 3 months, notified that nurse will call her to schedule the Ferlicit infusion.
[2021-07-14 14:06] LABS: Transglutaminase IgA <1.0 U/mL
--- NOTE | 2021-07-17 15:38 | HO.HEMONCSCH ---
[facility]. Left msg informing her of appt.
--- NOTE | 2021-07-25 15:47 | HO.HEMONCSCH ---
Referral to GI was sent.
[2021-10-10 11:05] VITALS: BP 145/74; PULSE 73; RESP 14; TEMP 36.9; O2SAT 97; BMI 30.2
--- NOTE | 2021-10-10 11:19 | P.PNHO-ONC_ITS ---
Medical Summary - Medical Summary Date of Service: 10/10/21 Chief complaint: Follow-up for: Microcytic hypochromic anemia. Medical Summary: DIAGNOSIS: MICROCYTIC HYPOCHROMIC ANEMIA. Interval History Interval history: Lety Harper is a pleasant 71 year old lady, here for a follow-up visit. Her energy level has improved s/p the IV Iron, however back pain is really bothering her. It is in the lower back. She has been following with Dr. Stephens. She had an MRI of the thoracic spine on 10/07. That raised concern for a 1.9 cm nodule within the medial right upper lung. She smoked less than half a pack a day up until 12 years ago however she did smoke for a long time. She denies fever but she does get some chills and night sweats. Appetite is not that good. She has lost weight. She used to get migraine headaches but not recently. She denies chest pain. If she walks fast she gets short of breath. She denies any cough. She gets abdominal pain. Denies nausea. No diarrhea. She has had a colonoscopy. Denies dysuria or hematuria. She does get back pain and pain in her shoulders. Denies any focal weakness. She does have a little depression. Denies skin rashes nor pruritus. PREVIOUS HISTORY: She had been referred for anemia. CBC from 06/14/2021: WBC 10.5, HGB 8.7, HCT 29.9, MCV 73.1, PLT 360. She did receive a blood transfusion, 2 units back on April 29 and . PAST MEDICAL HISTORY: Lety presents with acute on chronic pain related to a compression fracture. On imaging it appears she has two acute fractures, T8 and T10 with chronic L2 compression fracture and T11 vertebroplasty. On exam, most of her pain is in the prijection of T8. I would like to send her for an urgent MRI of the thoracic spine in order to assess acuity for vertebral augmentation. I will enter this and will follow up with patient as well as Dr. Stephens to review results and assess candidacy for surgical intervention. MR thoracic spine wo/w con Today S22.000A - Wedge compression fracture of unspecified thoracic vertebra, initial encounter for closed fracture MRI OF THORACIC SPINE FROM 10/06: Incidentally noted 1.9 cm nodule within the medial aspect of the right upper lung concerning for neoplasm. Dedicated chest CT is recommended. Possible right-sided mediastinal adenopathy. Acute edematous compression fractures are seen at T6, T7, and T8. The T8 fractur e demonstrates 65% height loss but no significant retropulsion. No spinal canal stenosis is seen. FAMILY HISTORY: Denies any known family history of anemia or cancer. 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 She is . Has 3 children. She smoked 6-8 cigarettes a day quit 12 years ago. Denies alcohol. Review of Systems - Constitutional Reports no additional constitutional complaints, Reports fatigue, Denies fever(s), Reports lack of energy, Reports weight loss - Eyes Reports no additional eye complaints - ENT Reports no additional ear, nose, mouth, and throat complaints - Cardiovascular Reports no additional cardiovascular complaints - Respiratory Reports no additional respiratory complaints - Gastrointestinal Reports no additional gastrointestinal complaints, Reports constipation, Denies nausea - Genitourinary Reports no additional female genitourinary complaints - Musculoskeletal Reports no additional musculoskeletal complaints, Reports back pain - Integumentary/Breasts Skin/Breast: Reports no additional skin complaints - Neurologic Reports no additional neurologic complaints - Psychiatric Reports no additional psychiatric complaints - Endocrine Reports no additional endocrine complaints - Hematologic/Lymphatic Reports no additional hematologic/lymphatic complaints - Allergic/Immunologic Reports no additional allergic/immunologic complaints [facility] Medical History: Medical History (Last Reviewed 10/10/21 @ 11:09 by LYSSA Benson) Arthritis Asthma Hypertension Osteoporosis Functional capacity: independent ambulation Patient : No Surgical History: Surgical History (Last Reviewed 10/10/21 @ 11:09 by LYSSA Benson) Previous back surgery Social History: Social History (Last Updated 10/10/21 @ 11:10 by LYSSA Benson) Tobacco History: Patient Tobacco Use Status: Former Tobacco user Occupation Assessmet: Current occupational status: retired Oncology Screenings - ECOG Performance Status ECOG Performance Status: 0 Home Medications and Allergies Home Medications Medication Instructions Recorded Confirmed Type gabapentin 100 mg capsule 2 cap PO TID 07/12/21 10/10/21 History lisinopril 10 mg tablet 1 tab PO DAILY 07/12/21 10/04/21 History loratadine 10 mg tablet 1 tab PO DAILY PRN allergies 07/12/21 10/04/21 History meclizine 12.5 mg tablet 1 tab PO TID 07/12/21 10/04/21 History omeprazole 20 mg capsule,delayed 1 cap PO DAILY 07/12/21 10/04/21 History release sertraline 100 mg tablet 1 tab PO DAILY 07/12/21 10/04/21 History Allergies Allergy/AdvReac Type Severity Reaction Status Date / Time aspirin [ASPIRIN] Allergy Unknown UNK Verified 10/04/21 13:34 Exam Vital signs: Vital Signs Temp 98.4 F 10/10/21 11:05 Pulse 73 10/10/21 11:05 Resp 14 10/10/21 11:05 BP 145/74 H 10/10/21 11:05 Pulse Ox 97 10/10/21 11:05 O2 Del Method 10/10/21 11:05 Intake & Output 10/09/21 10/10/21 10/10/21 18:59 06:59 18:59 Other: Weight 63.4 kg Weight in Grams 30411 Weight 63.4 kg BMI result Body Mass Index 30.2 - Constitutional Present: no acute distress - Routine HEENT Exam Head: Present: normocephalic Eye: Present: normal appearance ENT: Present: mucous membranes moist - Routine Neck Exam Present: full ROM - Routine Respiratory Exam Present: CTAB - Routine Cardiovascular Exam Cardiovascular: Present: RRR, S2 - Routine Abdominal Exam Present: soft, nontender - Routine Rectal Exam Patient deferred: digital exam - Routine Extremities Exam Present: nontender - Routine Back/Spine/Pelvis Exam Back/Spine: Present: full ROM - Routine Skin Exam Present: intact, normal turgor - Routine Neurological Exam Present: alert, oriented X3, vision grossly intact - Detailed Neurological Exam: Coma Scale Eye Opening: Spontaneous (4) - Routine Psychiatric Exam Present: normal affect Data - Labs CBC & Chem 7: 10/10/21 11:18 10/10/21 11:18 Labs: 07/12/21 14:42 Complete Blood Count Man Dif Stat Comprehensive Met. Panel Stat Ferritin Routine IRON PROFILE Routine LDH [Lactate Dehydrogenase] Routine Transglutaminase IgA Routine Vitamin B12 and Folate Routine Laboratory Last Values WBC 10.8 X10*3/uL (4.8-10.8) 07/12/21 14:42 RBC 4.13 X10*6/uL (4.20-5.50) L 07/12/21 14:42 Hgb 8.6 g/dl (12.0-16.0) L 07/12/21 14:42 Hct 29.9 % (37.0-47.0) L 07/12/21 14:42 MCV 72.4 fL (80.0-98.0) L 07/12/21 14:42 MCH 20.8 pg (27.0-33.0) L 07/12/21 14:42 MCHC 28.8 g/dl (31.0-35.0) L 07/12/21 14:42 RDW 17.2 % (11.0-16.0) H 07/12/21 14:42 Plt Count 410 X10*3/uL (160-400) H 07/12/21 14:42 MPV 8.6 fL (9.4-12.3) L 07/12/21 14:42 Absolute Nucleated RBC 0.000 X10*3/uL (0.0-0.012) 07/12/21 14:42 Nucleated RBC % (auto) 0.0 /100WBC (0.0-0.2) 07/12/21 14:42 Neutrophils % (Manual) 61 % (45-73) 07/12/21 14:42 Band Neutrophils % 0 % (3-5) L 07/12/21 14:42 Lymphocytes % (Manual) 25 % (20-40) 07/12/21 14:42 Atypical Lymphs % (Man) 3 % (0-6) 07/12/21 14:42 Monocytes % (Manual) 10 % (2-11) 07/12/21 14:42 Eosinophils % (Manual) 1 % (0-4) 07/12/21 14:42 Abs Neuts (Manual) 6.6 X10*3/uL (2.0-8.3) 07/12/21 14:42 Lymphocytes # (Manual) 2.7 X10*3/uL (1.2-4.9) 07/12/21 14:42 Atyp Lymphs # (Manual) 0.3 x10*3/uL 07/12/21 14:42 Monocytes # (Manual) 1.1 X10*3/uL (0.1-1.2) 07/12/21 14:42 Eosinophils # (Manual) 0.1 X10*3/uL (0.0-0.4) 07/12/21 14:42 Platelet Estimate NORMAL (NORMAL) 07/12/21 14:42 Plt Morphology Comment NORMAL 07/12/21 14:42 RBC Morphology NOTED 07/12/21 14:42 Hypochromasia 1+ (5-14) /OIF 07/12/21 14:42 Microcytosis 1+ (5-14) /OIF 07/12/21 14:42 Ovalocytes 1+ (5-14) /OIF 07/12/21 14:42 Sodium 139 mmol/L (135-145) 07/12/21 14:42 Potassium 4.2 mmol/L (3.3-5.1) 07/12/21 14:42 Chloride 105 mmol/L (96-108) 07/12/21 14:42 Carbon Dioxide 27 mmol/L (22-29) 07/12/21 14:42 Anion Gap 11 (12-20) L 07/12/21 14:42 BUN 16 mg/dL (9-16) 07/12/21 14:42 Creatinine 0.70 mg/dL (0.5-1.4) 07/12/21 14:42 Estim Creat Clear Calc TNP 07/12/21 14:42 Estimated GFR > 60 07/12/21 14:42 Random Glucose 94 mg/dL (60-115) 07/12/21 14:42 Calcium 9.3 mg/dL (8.4-10.2) D 07/12/21 14:42 Iron 15 mcg/dL (30-160) L 07/12/21 14:42 TIBC 478 mcg/dL (228-428) H 07/12/21 14:42 % Saturation 3 % (15-50) L 07/12/21 14:42 Unsat Iron Binding 463 ug/dL 07/12/21 14:42 Ferritin 11 ng/mL (10-250) 07/12/21 14:42 Total Bilirubin 0.4 mg/dL (0.0-1.0) 07/12/21 14:42 AST 19 U/L (5-31) 07/12/21 14:42 ALT 13 U/L (0-31) 07/12/21 14:42 Alkaline Phosphatase 100 U/L (39-117) 07/12/21 14:42 Lactate Dehydrogenase 199 U/L (122-220) 07/12/21 14:42 Total Protein 6.7 g/dL (6.5-8.0) 07/12/21 14:42 Albumin 4.0 g/dL (3.5-5.0) 07/12/21 14:42 Vitamin B12 372 pg/mL (200-900) 07/12/21 14:42 Folate 14.7 ng/mL (> or = 4.0) 07/12/21 14:42 Tiss Transglutamin IgA <1.0 U/mL 07/12/21 14:42 Assessment and Plan Patient Active problem list reviewed?: Yes (1) Microcytic hypochromic anemia Status: Acute Assessment and plan: This is a pleasant 71-year-old lady with history of microcytic hypochromic Anemia. DIFFERENTIAL DIAGNOSIS: 1. IRON DEFICIENCY: Iron studies: A . These are consistent with iron deficiency anemia. She most likely has occult GI blood loss. 2. ANEMIA OF CHRONIC DISEASE: Could be coexisting. 3. HEMOLYTIC ANEMIA: Is in the differential. However LDH is normal 199. 4. UNDERLYING MYELO INFILTRATIVE DISORDER: MDS versus lymphoma versus multiple myeloma. 5. B12 FOLATE DEFICIENCY: Could be combined with iron deficiency. B12 level: 372, folate 14.7. I proceeded with further workup. Checked B12 and folate levels: 372/14.7. Checked iron studies: . Transglut. IgA: <1. His LDH: 199. I referred her for further GI evaluation. She could have diverticular bleed versus angiodysplasia versus malignancy. Meanwhile she received IV Ferrlecit, weekly between 07/25 to 09/15. She received 8 doses. Her hemoglobin has now normalized. PLAN: An appointment has been set up with GI for 11/27 at 8.30 am. She will return in a month for a follow-up. Thank you, Cc: Hloly Maher. (2) Nodule of upper lobe of lung Status: Acute Assessment and plan: Patient was seen by her primary on 10/04: Lety presents with acute on chronic pain related to a compression fracture. On imaging it appears she has two acute fractures, T8 and T10 with chronic L2 compression fracture and T11 vertebroplasty. On exam, most of her pain is in the prijection of T8. I would like to send her for an urgent MRI of the thoracic spine in order to assess acuity for vertebral augmentation. I will enter this and will follow up with patient as well as Dr. Stephens to review results and assess candidacy for surgical intervention. MR thoracic spine wo/w con Today S22.000A - Wedge compression fracture of un specified thoracic vertebra, initial encounter for closed fracture MRI OF THORACIC SPINE FROM 10/06: Incidentally noted 1.9 cm nodule within the medial aspect of the right upper lung concerning for neoplasm. Dedicated chest CT is recommended. Possible right-sided mediastinal adenopathy. Acute edematous compression fractures are seen at T6, T7, and T8. The T8 fracture demonstrates 65% height loss but no significant retropulsion. No spinal canal stenosis is seen. She has incidentally been noted to have a pulmonary nodule. She does have a history of smoking, quit about 12 years ago. Concern is for lung cancer. PLAN: I will proceed with a dedicated CT scan of the chest, for further evaluation. Once nodule is confirmed, will refer her for further thoracic surgery c onsultation. She would need PET scan and PFTs. Then decide about resection, as long as the nodule is solitary. She will return in a month for a follow-up. Thank you, Cc: Dr. Vital. Dr. Burris. - Time Spent With Patient Time Spent with Patient (in minutes): 30
[2021-10-10 11:25] LABS: MANUAL DIFF FLAG NO
[2021-10-10 11:31] LABS: Basophils Absolute Auto 0.1 X10*3/uL (0.0-0.2); Basophils Percent Auto 0.6 % (0-2); Eosinophils Absolute Auto 0.2 X10*3/uL (0.0-0.4); Eosinophils Percent Auto 2.4 % (0-4); Hematocrit 41.1 % (37.0-47.0); Imm Gran Abs Auto 0.04 X10*3/uL (0.00-0.03); Imm Gran Pct Auto 0.4 % (0.0-0.4); Lymphocytes Absolute Auto 3.1 X10*3/uL (1.2-4.9); Lymphocytes Percent Auto 30.5 % (20-40); Mean Corpuscular HGB Conc 31.6 g/dl (31.0-35.0); Mean Corpuscular Hemoglobin 27.5 pg (27.0-33.0); Mean Corpuscular Volume 87.1 fL (80.0-98.0); Mean Platelet Volume 8.8 fL (9.4-12.3); Monocytes Absolute Auto 0.8 X10*3/uL (0.1-1.2); Monocytes Percent Auto 7.9 % (2-11); Neutrophils Absolute Auto 5.9 x10*3/uL (2.0-8.3); Neutrophils Percent Auto 58.2 % (45-73); Platelet Count 303 X10*3/uL (160-400); Red Blood Count 4.72 X10*6/uL (4.20-5.50); White Blood Count 10.1 X10*3/uL (4.8-10.8)
[2021-10-10 11:52] LABS: Alanine Aminotransferase 9 U/L (0-31); Albumin Level 3.8 g/dL (3.5-5.0); Alkaline Phosphatase 130 U/L (39-117); Anion Gap 12 (12-20); Aspartate Amino Transferase 17 U/L (5-31); Bilirubin Total 0.4 mg/dL (0.0-1.0); Blood Urea Nitrogen 15 mg/dL (9-16); Calcium 8.9 mg/dL (8.4-10.2); Carbon Dioxide 25 mmol/L (22-29); Chloride 108 mmol/L (96-108); Creatinine Clr Calc Pharmacy 59.8; Estimated Glomerular Filt Rate > 60; Glucose Random 98 mg/dL (60-115); Potassium 4.4 mmol/L (3.3-5.1); Sodium 141 mmol/L (135-145); Total Protein 6.5 g/dL (6.5-8.0)
[2021-10-10 12:05] LABS: Ferritin 131 ng/mL (10-250)
--- NOTE | 2021-10-10 14:48 | MHC.HEMONCMA ---
LM on VM at [id number] for consult, referred by Dr. Velasquez for nodule of upper lobe lung,
--- NOTE | 2021-10-10 15:15 | MHC.HEMONCMA ---
pt seen today,labs,vss with 1 month follow up, CT Scan of chest ordered. Primary Care Provider piyush used.
--- NOTE | 2021-10-10 17:01 | MHC.HEMONC ---
Faxed request for referral to Dr Vital per request of Dr Velasquez.
--- NOTE | 2021-10-16 10:08 | HO.HEMONCSCH ---
Pt is scheduled with Dr. Vital on 10/27/21 at 0900. Pt is aware.
[2021-11-10 10:27] VITALS: BP 147/67; PULSE 77; RESP 14; TEMP 36.4; O2SAT 94; BMI 30.2
--- NOTE | 2021-11-10 10:37 | PM.HEMONCPN ---
Medical Summary - Medical Summary Date of Service: 11/10/21 Chief complaint: Follow-up for: Normochromic normocytic anemia. Medical Summary: DIAGNOSIS: 1. MICROCYTIC HYPOCHROMIC ANEMIA. 2. Pulmonary nodules: Concern is malignancy Interval History Interval history: Lety Harper is a pleasant 71 year old lady, here for a follow-up visit. She says she feels: So-so. Her energy level has improved s/p the IV Iron. She had back pain. It is in the lower back. She has been following with Dr. Stephens. She had an MRI of the thoracic spine on 10/07. That raised concern for a 1.9 cm nodule within the medial right upper lung. She smoked less than half a pack a day up until 12 years ago however she did smoke for a long time. A dedicated CT scan of the chest was done on 10/20 which revealed: Emphysema. Bilateral upper lobe nodules worrisome for neoplasm. Enlarged mediastinal and bilateral hilar nodes. Esophageal hernia. Stable thoracic vertebral body compression fractures. l referred her for further thoracic surgery consultation. She was seen on 11/03. Her case was discussed at the lung cancer conference as well. The plan was to proceed with further staging workup including PET scan and brain MRI and to check her end organ function by PFTs. Prior authorization is being obtained as we speak. She denies fever but she does get some chills and night sweats. Appetite is not that good. She has lost weight. She used to get migraine headaches but not recently. She denies chest pain. If she walks fast she gets short of breath. She denies any cough. She gets abdominal pain. Denies nausea. No diarrhea. She has had a colonoscopy. Denies dysuria or hematuria. She does get back pain and pain in her shoulders. Denies any focal weakness. She does have a little depression. Denies skin rashes nor pruritus. PREVIOUS HISTORY: She had been referred for anemia. CBC from 06/14/2021: WBC 10.5, HGB 8.7, HCT 29.9, MCV 73.1, PLT 360. She did receive a blood transfusion, 2 units back on April 29 and . PAST MEDICAL HISTORY: Lety presents with acute on chronic pain related to a compression fracture. On imaging it appears she has two acute fractures, T8 and T10 with chronic L2 compression fracture and T11 vertebroplasty. On exam, most of her pain is in the prijection of T8. I would like to send her for an urgent MRI of the thoracic spine in order to assess acuity for vertebral augmentation. I will enter this and will follow up with patient as well as Dr. Stephens to review results and assess candidacy for surgical intervention. MR thoracic spine wo/w con Today S22.000A - Wedge compression fracture of unspecified thoracic vertebra, initial encounter for closed fracture MRI OF THORACIC SPINE FROM 10/06: Incidentally noted 1.9 cm nodule within the medial aspect of the right upper lung concerning for neoplasm. Dedicated chest CT is recommended. Possible right-sided mediastinal adenopathy. Acute edematous compression fractures are seen at T6, T7, and T8. The T8 fracture demonstrates 65% height loss but no significant retropulsion. No spinal canal stenosis is seen. FAMILY HISTORY: Denies any known family history of anemia or cancer. 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 She is . Has 3 children. She smoked 6-8 cigarettes a day quit 12 years ago. Denies alcohol. Review of Systems - Constitutional Reports system reviewed and no additional complaints, except as documented, Reports lack of energy, Reports malaise - Eyes Reports system reviewed and no additional complaints, except as documented - ENT Reports system reviewed and no additional complaints, except as documented - Cardiovascular Reports system reviewed and no additional complaints, except as documented - Respiratory Reports no additional respiratory complaints - Gastrointestinal Reports system reviewed and no additional complaints, except as documented - Genitourinary Reports no additional female genitourinary complaints - Musculoskeletal Reports system reviewed and no additional complaints, except as documented - Integumentary/Breasts Skin/Breast: Reports no additional skin complaints - Neurologic Reports system reviewed and no additional complaints, except as documented - Psychiatric Reports system reviewed and no additional complaints, except as documented - Endocrine Reports no additional endocrine complaints - Hematologic/Lymphatic Reports system reviewed and no additional complaints, except as documented - Allergic/Immunologic Reports system reviewed and no additional complaints, except as documented PMFSH Medical History: Medical History (Last Reviewed 11/10/21 @ 10:31 by Nathalie Tomlin CMA) Arthritis Asthma Compression fracture of body of thoracic vertebra Depression GERD (gastroesophageal reflux disease) Hypertension Microcytic hypochromic anemia Microscopic hematuria Osteoporosis Onset Date: ~2000 Personal history of nicotine dependence Functional capacity: independent ambulation Patient : No Family History: Family History (Last Updated 11/10/21 @ 10:32 by Nathalie Tomlin CMA) Mother No problems noted. Other No family history of cancer Surgical History: Surgical History (Last Reviewed 11/10/21 @ 10:31 by Nathalie Tomlin CMA) History of left breast biopsy Onset Date: ~2009 History of vertebroplasty Onset Date: ~2014 Social History: Social History (Last Updated 11/10/21 @ 10:33 by Nathalie Tomlin CMA) Living Situation History: Household Members: Significant Other Household Members: Children Housing: House Are you a primary out of school hours care worker to a significant other at home: No Do you presently have visiting nurse or other home services: No Tobacco History: Patient Tobacco Use Status: Former Tobacco user Occupation Assessmet: service: No Current occupational status: retired Oncology Screenings - ECOG Performance Status ECOG Performance Status: 1 Home Medications and Allergies Home Medications Medication Instructions Recorded Confirmed Type gabapentin 100 mg capsule 2 cap PO TID 07/12/21 11/10/21 History lisinopril 10 mg tablet 1 tab PO DAILY 07/12/21 11/10/21 History loratadine 10 mg tablet 1 tab PO DAILY PRN allergies 07/12/21 11/10/21 History meclizine 12.5 mg tablet 1 tab PO TID 07/12/21 11/10/21 History omeprazole 20 mg capsule,delayed 1 cap PO DAILY 07/12/21 11/10/21 History release sertraline 100 mg tablet 1 tab PO DAILY 07/12/21 11/10/21 History albuterol sulfate 90 mcg/actuation 2 puff inhalation Q6H PRN 11/03/21 11/10/21 History aerosol inhaler Shortness Of Breath Or Wheezing Allergies Allergy/AdvReac Type Severity Reaction Status Date / Time aspirin [ASPIRIN] Allergy Unknown UNK Verified 11/10/21 10:33 Exam Vital signs: Vital Signs Temp 97.6 F 11/10/21 10:27 Pulse 77 11/10/21 10:27 Resp 14 11/10/21 10:27 BP 147/67 H 11/10/21 10:27 Pulse Ox 94 11/10/21 10:27 O2 Del Method 11/10/21 10:27 Intake & Output 11/09/21 11/10/21 11/10/21 18:59 06:59 18:59 Other: Weight 63.3 kg [place] Weight in Grams [address]27 Weight 63.3 kg BMI result Body Mass Index 30.2 - Constitutional Present: no acute distress - Routine HEENT Exam Head: Present: normocephalic Eye: Present: normal appearance ENT: Present: mucous membranes moist - Routine Neck Exam Present: full ROM - Routine Respiratory Exam Present: CTAB - Routine Cardiovascular Exam Cardiovascular: Present: RRR, S2 - Routine Abdominal Exam Present: soft, nontender - Routine Rectal Exam Patient deferred: digital exam - Routine Extremities Exam Present: nontender - Routine Back/Spine/Pelvis Exam Back/Spine: Present: full ROM - Routine Skin Exam Present: intact, normal turgor - Routine Neurological Exam Present: alert, oriented X3, vision grossly intact - Detailed Neurological Exam: Coma Scale Eye Opening: Spontaneous (4) - Routine Psychiatric Exam Present: normal affect Data - Labs CBC & Chem 7: 10/10/21 11:18 10/10/21 11:18 Assessment and Plan Patient Active problem list reviewed?: Yes (1) Microcytic hypochromic anemia Status: Acute Assessment and plan: This is a pleasant 71-year-old lady with history of microcytic hypochromic Anemia. DIFFERENTIAL DIAGNOSIS: 1. IRON DEFICIENCY: Iron studies: A . These are consistent with iron deficiency anemia. She most likely has occult GI blood loss. 2. ANEMIA OF CHRONIC DISEASE: Could be coexisting. 3. HEMOLYTIC ANEMIA: Is in the differential. However LDH is normal 199. 4. UNDERLYING MYELO INFILTRATIVE DISORDER: MDS versus lymphoma versus multiple myeloma. 5. B12 FOLATE DEFICIENCY: Could be combined with iron deficiency. B12 level: 372, folate 14.7. I proceeded with further workup. Checked B12 and folate levels: 372/14.7. Checked iron studies: . Transglut. IgA: <1. His LDH: 199. I referred her for further GI evaluation. She could have diverticular bleed versus angiodysplasia versus malignancy. Meanwhile she received IV Ferrlecit, weekly between 07/25 to 09/15. She received 8 doses. Her hemoglobin has now normalized. PLAN: An appointment has been set up with GI for 11/27 at 8.30 am. She will return in a month for a follow-up. Thank you, Cc: Holly Maher. (2) Nodule of upper lobe of lung Problem details: (1.5 x 1.7 cm spiculated RUL nodule & 1.5 x 1.7 cm MONCHO nodule on 10/17/[address]) Status: Acute Assessment and plan: 71-year-old lady with recent abnormal CT chest. Patient was seen by her primary on 10/04: Lety presents with acute on chronic pain related to a compression fracture. On imaging it appears she has two acute fractures, T8 and T10 with chronic L2 compression fracture and T11 vertebroplasty. On exam, most of her pain is in the prijection of T8. I would like to send her for an urgent MRI of the thoracic spine in order to assess acuity for vertebral augmentation. I will enter this and will follow up with patient as well as Dr. Stephens to review results and assess candidacy for surgical intervention. MR thoracic spine wo/w con Today S22.000A - Wedge compression fracture of unspecified thoracic vertebra, initial encounter for closed fracture MRI OF THORACIC SPINE FROM 10/06: Incidentally noted 1.9 cm nodule within the medial aspect of the right upper lung concerning for neoplasm. Dedicated chest CT is recommended. Possible right-sided mediastinal adenopathy. Acute edematous compression fractures are seen at T6, T7, and T8. The T8 fracture demonstrates 65% height loss but no significant retropulsion. No spinal canal stenosis is seen. She has incidentally been noted to have a pulmonary nodule. She does have a history of smoking, quit about 12 years ago. Concern is for lung cancer. I proceeded with a dedicated CT scan of the chest, for further evaluation. This was done on 10/17 and revealed: Emphysema. Bilateral upper lobe nodules worrisome for neoplasm. Enlarged mediastinal and bilateral hilar nodes. Esophageal hernia. Stable thoracic vertebral body compression fractures. l referred her for further thoracic surgery consultation. PLAN: She needs MRI of the brain, a PET scan and PFTs. PFTs have been scheduled for 11/17. Further plan will be made in light of above results. Meanwhile I referred her to Pulmonary for her shortness of breath to optimize her symptoms, prior to treatment. She will return in a month for a follow-up. Thank you, Cc: Dr. Vital. Dr. Burris. - Time Spent With Patient Time Spent with Patient (in minutes): 30
--- NOTE | 2021-11-10 12:15 | MHC.HEMONCMA ---
Pt was in for follow up. Clinical summary reviewed and updated, VSS. Labs were drawn. Pt to return in 1 month.
--- NOTE | 2021-11-29 09:33 | MHC.HEMONC ---
Pt PET appt now 12/07 at [facility]. It had to be r/s due to Insurance issue per her dtr.
[2021-12-11 10:10] VITALS: BP 138/69; PULSE 70; RESP 14; TEMP 36.6; O2SAT 94; BMI 30.4
[2021-12-11 10:21] LABS: MANUAL DIFF FLAG NO
--- NOTE | 2021-12-11 10:27 | PM.HEMONCPN ---
Medical Summary - Medical Summary Date of Service: 12/11/21 Chief complaint: Follow-up for: 1. Anemia. 2. Lung nodules. Medical Summary: DIAGNOSIS: 1. MICROCYTIC HYPOCHROMIC ANEMIA. 2. Pulmonary nodules: Concern is malignancy Interval History Interval history: Lety Harper is a pleasant 71 year old lady, here for a follow-up visit. She recently underwent back surgery on her lumbar spine by Dr. Nunez, at [facility]. Her back pain has improved. However she was noted to have low O2 sat. She is on home O2 now. She says she feels: So-so. She denies fever but she does get some chills and night sweats. Appetite is not that good. She has lost weight. She used to get migraine headaches but not recently. She denies chest pain. If she walks fast she gets short of breath. She denies any cough. She gets abdominal pain. Denies nausea. No diarrhea. She has had a colonoscopy. Denies dysuria or hematuria. She does get back pain and pain in her shoulders. Denies any focal weakness. She does have a little depression. Denies skin rashes nor pruritus. INTERIM HISTORY: Her energy level has improved s/p the IV Iron. She had back pain. It is in the lower back. She has been following with Dr. Stephens. She had an MRI of the thoracic spine on 10/07. That raised concern for a 1.9 cm nodule within the medial right upper lung. She smoked less than half a pack a day up until 12 years ago however she did smoke for a long time. A dedicated CT scan of the chest was done on 10/20 which revealed: Emphysema. Bilateral upper lobe nodules worrisome for neoplasm. Enlarged mediastinal and bilateral hilar nodes. Esophageal hernia. Stable thoracic vertebral body compression fractures. l referred her for further thoracic surgery consultation. She was seen on 11/03. Her case was discussed at the lung cancer conference as well. The plan was to proceed with further staging workup including PET scan and brain MRI and to check her end organ function by PFTs. Prior authorization is being obtained as we speak. PREVIOUS HISTORY: She had been referred for anemia. CBC from 06/14/2021: WBC 10.5, HGB 8.7, HCT 29.9, MCV 73.1, PLT 360. She did receive a blood transfusion, 2 units back on April 29 and . PAST MEDICAL HISTORY: Lety presents with acute on chronic pain related to a compression fracture. On imaging it appears she has two acute fractures, T8 and T10 with chronic L2 compression fracture and T11 vertebroplasty. On exam, most of her pain is in the prijection of T8. I would like to send her for an urgent MRI of the thoracic spine in order to assess acuity for vertebral augmentation. I will enter this and will follow up with patient as well as Dr. Stephens to review results and assess candidacy for surgical intervention. MR thoracic spine wo/w con - Wedge compression fracture of unspecified thoracic vertebra, initial encounter for closed fracture MRI OF THORACIC SPINE FROM 10/06: Incidentally noted 1.9 cm nodule within the medial aspect of the right upper lung concerning for neoplasm. Dedicated chest CT is recommended. Possible right-sided mediastinal adenopathy. Acute edematous compression fractures are seen at T6, T7, and T8. The T8 fracture demonstrates 65% height loss but no significant retropulsion. No spinal canal stenosis is seen. FAMILY HISTORY: Denies any known family history of anemia or cancer. 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 She is . Has 3 children. She smoked 6-8 cigarettes a day quit 12 years ago. Denies alcohol. Review of Systems - Constitutional Reports system reviewed and no additional complaints, except as documented, Reports weight gain, Denies anorexia, Denies fatigue, Denies fever(s), Denies lack of energy, Denies weakness - Eyes Reports system reviewed and no additional complaints, except as documented - ENT Reports system reviewed and no additional complaints, except as documented - Cardiovascular Reports system reviewed and no additional complaints, except as documented - Respiratory Reports no additional respiratory complaints - Gastrointestinal Reports system reviewed and no additional complaints, except as documented - Genitourinary Reports no additional female genitourinary complaints - Musculoskeletal Reports system reviewed and no additional complaints, except as documented - Integumentary/Breasts Skin/Breast: Reports no additional skin complaints - Neurologic Reports system reviewed and no additional complaints, except as documented - Psychiatric Reports system reviewed and no additional complaints, except as documented - Endocrine Reports no additional endocrine complaints - Hematologic/Lymphatic Reports system reviewed and no additional complaints, except as documented - Allergic/Immunologic Reports system reviewed and no additional complaints, except as documented PMF Medical History: Medical History (Last Reviewed 12/11/21 @ 10:22 by Nathalie Tomlin CMA) Arthritis Asthma Compression fracture of body of thoracic vertebra Depression GERD (gastroesophageal reflux disease) Hypertension Microcytic hypochromic anemia Microscopic hematuria Osteoporosis Onset Date: ~2000 Personal history of nicotine dependence Functional capacity: independent ambulation Patient : No Family History: Family History (Last Reviewed 12/15/21 @ 09:25 by CIELO Sanchez) Mother No problems noted. Other No family history of cancer Surgical History: Surgical History (Last Reviewed 12/15/21 @ 09:25 by CIELO Sanchez) History of back surgery History of esophagogastroduodenoscopy (EGD) History of left breast biopsy Onset Date: ~2009 History of vertebroplasty Onset Date: ~2014 Hx of colonoscopy Social History: Social History (Last Reviewed 12/15/21 @ 09:25 by CIELO Sanchez) Living Situation History: Household Members: Spouse Housing: House Are you a primary plant health care technician to a significant other at home: No Do you presently have visiting nurse or other home services: No Tobacco History: Patient Tobacco Use Status: Former Tobacco user Occupation Assessmet: service: No Current occupational status: retired Oncology Screenings - ECOG Performance Status ECOG Performance Status: 0 Home Medications and Allergies Home Medications Medication Instructions Recorded Confirmed Type gabapentin 100 mg capsule 2 cap PO TID 07/12/21 12/11/21 History lisinopril 10 mg tablet 1 tab PO DAILY 07/12/21 12/11/21 History loratadine 10 mg tablet 1 tab PO DAILY PRN allergies 07/12/21 12/11/21 History meclizine 12.5 mg tablet 1 tab PO TID 07/12/21 12/11/21 History omeprazole 20 mg capsule,delayed 1 cap PO DAILY 07/12/21 12/11/21 History release sertraline 100 mg tablet 1 tab PO DAILY 07/12/21 12/11/21 History albuterol sulfate 90 mcg/actuation 2 puff inhalation Q6H PRN 11/03/21 12/11/21 History aerosol inhaler Shortness Of Breath Or Wheezing acetaminophen 650 mg 650 mg PO Q8H 11/27/21 12/11/21 History tablet,extended release fluticasone furoate 100 0 inh inhalation DAILY 11/27/21 12/11/21 History mcg/actuation blister powder for inhalation (Arnuity Ellipta) Allergies Allergy/AdvReac Type Severity Reaction Status Date / Time aspirin [ASPIRIN] Allergy Unknown UNK Verified 12/15/21 09:25 Exam Vital signs: Vital Signs Temp 97.9 F 12/11/21 10:10 Pulse 70 12/11/21 10:10 Resp 14 12/11/21 10:10 BP 138/69 12/11/21 10:10 Pulse Ox 94 12/11/21 10:10 O2 Del Method 12/11/21 10:10 O2 Flow Rate 2 12/11/21 10:10 Intake & Output 12/10/21 12/11/21 12/11/21 18:59 06:59 18:59 Other: Weight 63.7 kg [place] Weight in Grams 46548 Weight 63.7 kg BMI result Body Mass Index 30.4 - Constitutional Present: no acute distress - Routine HEENT Exam Head: Present: normocephalic Eye: Present: normal appearance ENT: Present: mucous membranes moist - Routine Neck Exam Present: full ROM - Routine Respiratory Exam Present: CTAB - Routine Cardiovascular Exam Cardiovascular: Present: RRR, S2 - Routine Abdominal Exam Present: soft, nontender - Routine Rectal Exam Patient deferred: digital exam - Routine Extremities Exam Present: nontender - Routine Back/Spine/Pelvis Exam Back/Spine: Present: full ROM - Routine Skin Exam Present: intact, normal turgor - Routine Neurological Exam Present: alert, oriented X3, vision grossly intact - Detailed Neurological Exam: Coma Scale Eye Opening: Spontaneous (4) - Routine Psychiatric Exam Present: normal affect Data - Labs CBC & Chem 7: 12/11/21 10:19 12/11/21 10:19 Assessment and Plan Patient Active problem list reviewed?: Yes (1) Microcytic hypochromic anemia Status: Acute Assessment and plan: This is a pleasant 71-year-old lady with history of microcytic hypochromic Anemia. DIFFERENTIAL DIAGNOSIS: 1. IRON DEFICIENCY: Iron studies: A . These are consistent with iron deficiency anemia. She most likely has occult GI blood loss. 2. ANEMIA OF CHRONIC DISEASE: Could be coexisting. 3. HEMOLYTIC ANEMIA: Is in the differential. However LDH is normal 199. 4. UNDERLYING MYELO INFILTRATIVE DISORDER: MDS versus lymphoma versus multiple myeloma. 5. B12 FOLATE DEFICIENCY: Could be combined with iron deficiency. B12 level: 372, folate 14.7. I proceeded with further workup. Checked B12 and folate levels: 372/14.7. Checked iron studies: /05/26. Transglut. IgA: <1. His LDH: 199. I referred her for further GI evaluation. She could have diverticular bleed versus angiodysplasia versus malignancy. Meanwhile she received IV Ferrlecit, weekly between 07/25 to 09/15. She received 8 doses. Her hemoglobin has now normalized. She was seen by GI on 11/27 at 8.30 am. PLAN: They have recommended an EGD and a colonoscopy. These will be scheduled. She will return in a couple of weeks for a follow-up. Thank you, Cc: Holly Maher. (2) Nodule of upper lobe of lung Problem details: (1.5 x 1.7 cm spiculated RUL nodule & 1.5 x 1.7 cm MONCHO nodule on 10/17/[address]) Status: Acute Assessment and plan: 71-year-old lady with recent abnormal CT chest. Patient was seen by her primary on 10/04: Lety presents with acute on chronic pain related to a compression fracture. On imaging it appears she has two acute fractures, T8 and T10 with chronic L2 compression fracture and T11 vertebroplasty. On exam, most of her pain is in the prijection of T8. I would like to send her for an urgent MRI of the thoracic spine in order to assess acuity for vertebral augmentation. I will enter this and will follow up with patient as well as Dr. Stephens to review results and assess candidacy for surgical intervention. MR thoracic spine wo/w con Today S22.000A - Wedge compression fracture of unspecified thoracic vertebra, initial encounter for closed fracture MRI OF THORACIC SPINE FROM 10/06: Incidentally noted 1.9 cm nodule within the medial aspect of the right upper lung concerning for neoplasm. Dedicated chest CT is recommended. Possible right-sided mediastinal adenopathy. Acute edematous compression fractures are seen at T6, T7, and T8. The T8 fracture demonstrates 65% height loss but no significant retropulsion. No spinal canal stenosis is seen. She has incidentally been noted to have a pulmonary nodule. She does have a history of smoking, quit about 12 years ago. Concern is for lung cancer. I proceeded with a dedicated CT scan of the chest, for further evaluation. This was done on 10/17 and revealed: Emphysema. Bilateral upper lobe nodules worrisome for neoplasm. Enlarged mediastinal and bilateral hilar nodes. Esophageal hernia. Stable thoracic vertebral body compression fractures. She was under the care of Dr. Desai, from Pulmonary for her shortness of breath to optimize her symptoms. I will request his records. 11/22 PFTs: Mild obstructive ventilatory defect with no bronchodilator response. The patient was unable to perform lung volume maneuvers. Decreased diffusion capacity suggests emphysema. She had her PET scan on , 12/07 at [facility]: Spiculated medial right upper lobe lung nodule demonstrated it has increased FDG uptake, SUV max of 12.77 suggesting malignancy. Peripheral left upper lobe pulmonary nodule demonstrates increased FDG uptake, SUV max of 16.72. Suggesting malignancy. Increased FDG uptake within right paratracheal, right hilar and small AP window lymph nodes concerning for possible metastatic disease. There are multiple small lymph nodes demonstrating mild increased FDG uptake including the right supraclavicular region, bilateral axilla bilateral inguinal regions and left internal iliac regions which may be reactive inflammatory in nature. No additional areas of abnormal FDG uptake in neck chest abdomen or pelvis. PLAN: She needs MRI of the brain. This is being scheduled. She needs tissue diagnosis. Further plan will be made in light of above results. l referred her for further thoracic surgery consultation. She will return in 2 weeks for a follow-up. Thank you, Cc: Dr. Vital. Dr. Burris. - Time Spent With Patient Time Spent with Patient (in minutes): 30
[2021-12-11 10:34] LABS: Basophils Absolute Auto 0.1 X10*3/uL (0.0-0.2); Basophils Percent Auto 0.6 % (0-2); Eosinophils Absolute Auto 0.3 X10*3/uL (0.0-0.4); Eosinophils Percent Auto 2.4 % (0-4); Hematocrit 41.6 % (37.0-47.0); Hemoglobin 13.4 g/dl (12.0-16.0); Imm Gran Abs Auto 0.03 X10*3/uL (0.00-0.03); Imm Gran Pct Auto 0.3 % (0.0-0.4); Lymphocytes Absolute Auto 3.1 X10*3/uL (1.2-4.9); Lymphocytes Percent Auto 27.7 % (20-40); Mean Corpuscular HGB Conc 32.2 g/dl (31.0-35.0); Mean Corpuscular Hemoglobin 29.1 pg (27.0-33.0); Mean Corpuscular Volume 90.4 fL (80.0-98.0); Monocytes Absolute Auto 0.8 X10*3/uL (0.1-1.2); Monocytes Percent Auto 7.5 % (2-11); Neutrophils Absolute Auto 6.8 x10*3/uL (2.0-8.3); Neutrophils Percent Auto 61.5 % (45-73); Platelet Count 267 X10*3/uL (160-400); Red Cell Distribution Width 13.3 % (11.0-16.0); White Blood Count 11.1 X10*3/uL (4.8-10.8)
--- NOTE | 2021-12-11 10:39 | MHC.HEMONCMA ---
Fax sent to [facility] for PET report.
[2021-12-11 10:54] LABS: Alanine Aminotransferase 11 U/L (0-31); Albumin Level 4.1 g/dL (3.5-5.0); Alkaline Phosphatase 120 U/L (39-117); Anion Gap 16 (12-20); Aspartate Amino Transferase 18 U/L (5-31); Bilirubin Total 0.4 mg/dL (0.0-1.0); Blood Urea Nitrogen 18 mg/dL (9-16); Calcium 9.3 mg/dL (8.4-10.2); Carbon Dioxide 25 mmol/L (22-29); Chloride 105 mmol/L (96-108); Estimated Glomerular Filt Rate > 60; Glucose Random 87 mg/dL (60-115); Lactate Dehydrogenase 211 U/L (122-220); Potassium 4.6 mmol/L (3.3-5.1); Sodium 141 mmol/L (135-145); Total Protein 6.8 g/dL (6.5-8.0)
[2021-12-11 11:17] LABS: Ferritin 148 ng/mL (10-250)
--- NOTE | 2021-12-11 12:31 | MHC.HEMONCMA ---
Pt was in for follow up. Clinical summary reviewed and updated, VSS. Labs were drawn. Pt to return in 1 month.
--- NOTE | 2021-12-13 15:22 | HO.HEMONCSCH ---
Office notes, labs and pet scan sent to [facility] thoracic to Dr. Carson for a consult. Office states they will call pt and schedule an appt.
--- NOTE | 2021-12-22 15:57 | HO.HEMONCSCH ---
MRI sent to [facility].
[2021-12-26 11:48] VITALS: BP 146/68; PULSE 93; RESP 14; TEMP 36.5; O2SAT 94; BMI 30.6
[2021-12-26 11:50] LABS: MANUAL DIFF FLAG NO
--- NOTE | 2021-12-26 11:52 | PM.HEMONCPN ---
Medical Summary - Medical Summary Date of Service: 12/26/21 Chief complaint: FOLLOW-UP FOR: LUNG NODULE. Medical Summary: DIAGNOSIS: 1. MICROCYTIC HYPOCHROMIC ANEMIA. 2. Pulmonary nodules: Concern is malignancy. Interval History Interval history: Lety Harper is a pleasant 71 year old lady, here for a follow-up visit. She says she feels: So-so. Not too fatigued. She denies fever but she does get some chills and night sweats. She used to get migraine headaches but not recently. She denies chest pain. If she walks fast she gets short of breath. She denies any cough. She gets abdominal pain. Denies nausea. No diarrhea. She has had a colonoscopy. Appetite is not that good. She has lost weight. Denies dysuria or hematuria. She does get back pain and pain in her shoulders. Denies any focal weakness. She does have a little depression. Denies skin rashes nor pruritus. INTERIM HISTORY: She recently underwent back surgery on her lumbar spine by Dr. Nunez, at [facility]. Her back pain has improved. However she was noted to have low O2 sat. She is on home O2 now. Her energy level has improved s/p the IV Iron. She had back pain. It is in the lower back. She has been following with Dr. Stephens. She had an MRI of the thoracic spine on 10/07. That raised concern for a 1.9 cm nodule within the medial right upper lung. She smoked less than half a pack a day up until 12 years ago however she did smoke for a long time. A dedicated CT scan of the chest was done on 10/20 which revealed: Emphysema. Bilateral upper lobe nodules worrisome for neoplasm. Enlarged mediastinal and bilateral hilar nodes. Esophageal hernia. Stable thoracic vertebral body compression fractures. l referred her for further thoracic surgery consultation. She was seen on 11/03. Her case was discussed at the lung cancer conference as well. The plan was to proceed with further staging workup including PET scan and brain MRI and to check her end organ function by PFTs. Prior authorization is being obtained as we speak. PREVIOUS HISTORY: She had been referred for anemia. CBC from 06/14/2021: WBC 10.5, HGB 8.7, HCT 29.9, MCV 73.1, PLT 360. She did receive a blood transfusion, 2 units back on April 29 and . PAST MEDICAL HISTORY: Lety presents with acute on chronic pain related to a compression fracture. On imaging it appears she has two acute fractures, T8 and T10 with chronic L2 compression fracture and T11 vertebroplasty. On exam, most of her pain is in the prijection of T8. I would like to send her for an urgent MRI of the thoracic spine in order to assess acuity for vertebral augmentation. I will enter this and will follow up with patient as well as Dr. Stephens to review results and assess candidacy for surgical intervention. MR thoracic spine wo/w con - Wedge compression fracture of unspecified thoracic vertebra, initial encounter for closed fracture MRI OF THORACIC SPINE FROM 10/06: Incidentally noted 1.9 cm nodule within the medial aspect of the right upper lung concerning for neoplasm. Dedicated chest CT is recommended. Possible right-sided mediastinal adenopathy. Acute edematous compression fractures are seen at T6, T7, and T8. The T8 fracture demonstrates 65% height loss but no significant retropulsion. No spinal canal stenosis is seen. FAMILY HISTORY: Denies any known family history of anemia or cancer. 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 She is . Has 3 children. She smoked 6-8 cigarettes a day quit 12 years ago. Denies alcohol. Review of Systems - Constitutional Reports no additional constitutional complaints, Reports poor appetite, Reports weight loss - Eyes Reports no additional eye complaints - ENT Reports no additional ear, nose, mouth, and throat complaints - Cardiovascular Reports no additional cardiovascular complaints - Respiratory Reports no additional respiratory complaints - Gastrointestinal Reports no additional gastrointestinal complaints - Genitourinary Reports no additional female genitourinary complaints - Musculoskeletal Reports no additional musculoskeletal complaints - Integumentary/Breasts Skin/Breast: Reports no additional skin complaints - Neurologic Reports no additional neurologic complaints, Denies weakness - Psychiatric Reports no additional psychiatric complaints - Endocrine Reports no additional endocrine complaints - Hematologic/Lymphatic Reports no additional hematologic/lymphatic complaints - Allergic/Immunologic Reports no additional allergic/immunologic complaints [facility] Medical History: Medical History (Last Reviewed 12/26/21 @ 11:52 by Nathalie Tomlin CMA) Arthritis Asthma Compression fracture of body of thoracic vertebra Depression GERD (gastroesophageal reflux disease) Hypertension Microcytic hypochromic anemia Microscopic hematuria Osteoporosis Onset Date: ~2000 Personal history of nicotine dependence Functional capacity: independent ambulation Patient : No Family History: Family History (Last Reviewed 12/26/21 @ 11:52 by Nathalie Tomlin CMA) Mother No problems noted. Other No family history of cancer Surgical History: Surgical History (Last Reviewed 12/26/21 @ 11:52 by Nathalie Tomlin CMA) History of back surgery History of esophagogastroduodenoscopy (EGD) History of left breast biopsy Onset Date: ~2009 History of vertebroplasty Onset Date: ~2014 Hx of colonoscopy Social History: Social History (Last Reviewed 12/26/21 @ 11:52 by Nathalie Tomlin CMA) Living Situation History: Household Members: Spouse Housing: House Are you a primary respite care provider to a significant other at home: No Do you presently have visiting nurse or other home services: No Alcohol History Details: 1. How often do you have a drink containing alcohol?: a. Never Tobacco History: Patient Tobacco Use Status: Former Tobacco user Substance Use History: Use of substances other than those prescribed or required for medical reasons: No Domestic Abuse History: Have you been hit, kicked, punched, or otherwise hurt by someone within the past year? If so, by whom?: No Do you feel safe in your current relationship?: Yes Is there a partner from a previous relationship who is making you feel unsafe now?: No Homicidal Assessment: Do you have thoughts of harming others: None Do you have a plan to hurt others: No Plan Do you have the means to hurt others: No Nutrition Assessment: Recently lost weight without trying: No Eating poorly because of decreased appetite: No Patient : No Occupation Assessmet: service: No Current occupational status: retired Oncology Screenings - ECOG Performance Status ECOG Performance Status: 1 Home Medications and Allergies Home Medications Medication Instructions Recorded Confirmed Type gabapentin 100 mg capsule 2 cap PO TID 07/12/21 12/26/21 History lisinopril 10 mg tablet 1 tab PO DAILY 07/12/21 12/26/21 History loratadine 10 mg tablet 1 tab PO DAILY PRN allergies 07/12/21 12/26/21 History meclizine 12.5 mg tablet 1 tab PO TID 07/12/21 12/26/21 History omeprazole 20 mg capsule,delayed 1 cap PO DAILY 07/12/21 12/26/21 History release sertraline 100 mg tablet 1 tab PO DAILY 07/12/21 12/26/21 History albuterol sulfate 90 mcg/actuation 2 puff inhalation Q6H PRN 11/03/21 12/26/21 History aerosol inhaler Shortness Of Breath Or Wheezing acetaminophen 650 mg 650 mg PO Q8H 11/27/21 12/26/21 History tablet,extended release fluticasone furoate 100 0 inh inhalation DAILY 11/27/21 12/26/21 History mcg/actuation blister powder for inhalation (Arnuity Ellipta) Allergies Allergy/AdvReac Type Severity Reaction Status Date / Time aspirin [ASPIRIN] Allergy Unknown UNK Verified 12/26/21 11:52 Exam Vital signs: Vital Signs Temp 97.7 F 12/26/21 11:48 Pulse 93 12/26/21 11:48 Resp 14 12/26/21 11:48 BP 146/68 H 12/26/21 11:48 Pulse Ox 94 12/26/21 11:48 O2 Del Method 12/26/21 11:48 O2 Flow Rate 2 12/26/21 11:48 Intake & Output 12/25/21 12/26/21 12/26/21 18:59 06:59 18:59 Other: Weight 64.2 kg Weight in Grams 47910 Weight 64.2 kg BMI result Body Mass Index 30.6 - Constitutional Present: no acute distress - Routine HEENT Exam Head: Present: normocephalic Eye: Present: normal appearance ENT: Present: mucous membranes moist - Routine Neck Exam Present: full ROM - Routine Respiratory Exam Present: CTAB - Routine Cardiovascular Exam Cardiovascular: Present: RRR, S2 - Routine Abdominal Exam Present: soft, nontender - Routine Rectal Exam Patient deferred: digital exam - Routine Extremities Exam Present: nontender - Routine Back/Spine/Pelvis Exam Back/Spine: Present: full ROM - Routine Skin Exam Present: intact, normal turgor - Routine Neurological Exam Present: alert, oriented X3, vision grossly intact - Detailed Neurological Exam: Coma Scale Eye Opening: Spontaneous (4) - Routine Psychiatric Exam Present: normal affect Data - Labs CBC & Chem 7: 12/26/21 11:47 12/26/21 11:47 Assessment and Plan Patient Active problem list reviewed?: Yes (1) Microcytic hypochromic anemia Status: Acute Assessment and plan: This is a pleasant 71-year-old lady with history of microcytic hypochromic Anemia. DIFFERENTIAL DIAGNOSIS: 1. IRON DEFICIENCY: Iron studies: A . These are consistent with iron deficiency anemia. She most likely has occult GI blood loss. 2. ANEMIA OF CHRONIC DISEASE: Could be coexisting. 3. HEMOLYTIC ANEMIA: Is in the differential. However LDH is normal 199. 4. UNDERLYING MYELO INFILTRATIVE DISORDER: MDS versus lymphoma versus multiple myeloma. 5. B12 FOLATE DEFICIENCY: Could be combined with iron deficiency. B12 level: 372, folate 14.7. I proceeded with further workup. Checked B12 and folate levels: 372/14.7. Checked iron studies: . Transglut. IgA: <1. His LDH: 199. I referred her for further GI evaluation. She could have diverticular bleed versus angiodysplasia versus malignancy. Meanwhile she received IV Ferrlecit, weekly between 07/25 to 09/15. She received 8 doses. Her hemoglobin has now normalized. She was seen by GI on 11/27 at 8.30 am. PLAN: They have recommended an EGD and a colonoscopy. These will be scheduled. She will return in a couple of weeks for a follow-up. Thank you, Cc: Holly Maher. (2) Nodule of upper lobe of lung Problem details: (1.5 x 1.7 cm spiculated RUL nodule & 1.5 x 1.7 cm MONCHO nodule on 10/17/[address]) Status: Acute Assessment and plan: 71-year-old lady with recent abnormal CT chest. Patient was seen by her primary on 10/04: Lety presents with acute on chronic pain related to a compression fracture. On imaging it appears she has two acute fractures, T8 and T10 with chronic L2 compression fracture and T11 vertebroplasty. On exam, most of her pain is in the prijection of T8. I would like to send her for an urgent MRI of the thoracic spine in order to assess acuity for vertebral augmentation. I will enter this and will follow up with patient as well as Dr. Stephens to review results and assess candidacy for surgical intervention. MR thoracic spine wo/w con Today S22.000A - Wedge compression fracture of unspecified thoracic vertebra, initial encounter for closed fracture MRI OF THORACIC SPINE FROM 10/06: Incidentally noted 1.9 cm nodule within the medial aspect of the right upper lung concerning for neoplasm. Dedicated chest CT is recommended. Possible right-sided mediastinal adenopathy. Acute edematous compression fractures are seen at T6, T7, and T8. The T8 fracture demonstrates 65% height loss but no significant retropulsion. No spinal canal stenosis is seen. She has incidentally been noted to have a pulmonary nodule. She does have a history of smoking, quit about 12 years ago. Concern was for lung cancer. I proceeded with a dedicated CT scan of the chest, for further evaluation. This was done on 10/17 and revealed: Emphysema. Bilateral upper lobe nodules worrisome for neoplasm. Enlarged mediastinal and bilateral hilar nodes. Esophageal hernia. Stable thoracic vertebral body compression fractures. She was under the care of Dr. Desai, from Pulmonary for her shortness of breath to optimize her symptoms. I requested his records. 11/22 PFTs: Mild obstructive ventilatory defect with no bronchodilator response. The patient was unable to perform lung volume maneuvers. Decreased diffusion capacity suggests emphysema. She had her PET scan on , 12/07 at [facility]: Spiculated medial right upper lobe lung nodule demonstrated it has increased FDG uptake, SUV max of 12.77 suggesting malignancy. Peripheral left upper lobe pulmonary nodule demonstrates increased FDG uptake, SUV max of 16.72. Suggesting malignancy. Increased FDG uptake within right paratracheal, right hilar and small AP window lymph nodes concerning for possible metastatic disease. There are multiple small lymph nodes demonstrating mild increased FDG uptake including the right supraclavicular region, bilateral axilla bilateral inguinal regions and left internal iliac regions which may be reactive inflammatory in nature. No additional areas of abnormal FDG uptake in neck chest abdomen or pelvis. CEA: 11. LDH: 211. PLAN: She needs MRI of the brain. This is being scheduled. She needs tissue diagnosis. Will request IR to proceed with CT scan guided biopsy of 1 of the nodules. Further plan will be made in light of above results. l referred her for further thoracic surgery consultation. She will return in 2 weeks for a follow-up. Thank you, Cc: Dr. Vital. Dr. Burris. - Time Spent With Patient Time Spent with Patient (in minutes): 30
[2021-12-26 12:14] LABS: Basophils Absolute Auto 0.1 X10*3/uL (0.0-0.2); Basophils Percent Auto 0.4 % (0-2); Eosinophils Absolute Auto 0.2 X10*3/uL (0.0-0.4); Eosinophils Percent Auto 1.7 % (0-4); Hematocrit 40.2 % (37.0-47.0); Hemoglobin 13.5 g/dl (12.0-16.0); Imm Gran Abs Auto 0.06 X10*3/uL (0.00-0.03); Imm Gran Pct Auto 0.5 % (0.0-0.4); Lymphocytes Percent Auto 23.4 % (20-40); Mean Corpuscular HGB Conc 33.6 g/dl (31.0-35.0); Mean Corpuscular Hemoglobin 30.3 pg (27.0-33.0); Mean Corpuscular Volume 90.1 fL (80.0-98.0); Mean Platelet Volume 9.4 fL (9.4-12.3); Neutrophils Absolute Auto 8.3 x10*3/uL (2.0-8.3); Platelet Count 308 X10*3/uL (160-400); Red Blood Count 4.46 X10*6/uL (4.20-5.50); Red Cell Distribution Width 13.3 % (11.0-16.0); White Blood Count 12.6 X10*3/uL (4.8-10.8)
[2021-12-26 12:29] LABS: Alanine Aminotransferase 9 U/L (0-31); Alkaline Phosphatase 140 U/L (39-117); Anion Gap 14 (12-20); Aspartate Amino Transferase 17 U/L (5-31); Bilirubin Total 0.6 mg/dL (0.0-1.0); Blood Urea Nitrogen 11 mg/dL (9-16); Calcium 9.4 mg/dL (8.4-10.2); Carbon Dioxide 26 mmol/L (22-29); Chloride 105 mmol/L (96-108); Creatinine Clr Calc Pharmacy 65.2; Estimated Glomerular Filt Rate > 60; Glucose Random 76 mg/dL (60-115); Potassium 3.8 mmol/L (3.3-5.1); Sodium 141 mmol/L (135-145); Total Protein 6.9 g/dL (6.5-8.0)
--- NOTE | 2021-12-26 16:48 | MHC.HEMONCMA ---
Pt was in for follow up. Clinical summary reviewed and updated, VSS. Labs were drawn. Pt to return in a few weeks. Will sent pet report to Dr. Parks and will schedule appt for biopsy.
--- NOTE | 2021-12-27 09:35 | MHC.HEMONCMA ---
Faxed Pet scan to Marcelina at Dr. Vital's.
--- NOTE | 2021-12-27 10:42 | HO.HEMONCSCH ---
CT biopsy sent to [facility].
== END 2022-11-16 | disposition home or self-care (01) ==
LOC: HO.ONC 11:40
PROVIDERS: PCP Internal Medicine; Visit Provider Internal Medicine Medical Oncology
DX: C34.11 Malignant neoplasm of upper lobe, right bronchus or lung (principal); D50.9 Iron deficiency anemia, unspecified; Z87.891 Personal history of nicotine dependence
CPT/HCPCS: 36415; 80053; 82378; 82607; 82728; 82746; 83540; 83615; 85007; 85025; 85027; 86364; 99204; 99213; 99214

== ENCOUNTER 2022-01-05 10:53 | Outpatient (REF) | payer MEDICARE, MEDICAID, SELFPAY ==
--- NOTE | ~2022-01-05 | MR_ITS ---
EXAMINATION: MR BRAIN WITHOUT AND WITH CONTRAST CLINICAL INFORMATION: 71-year-old undergoing initial staging for lung CA. COMPARISON: 09/22/2019 MRI. TECHNIQUE: Multiplanar, multisequence MRI of the brain was obtained before and after the intravenous administration of 6.5 mL Gadavist. Technical Note: Images are degraded by motion artifact. FINDINGS: Brain Volume: Mild generalized diffuse parenchymal volume loss within the limitations of qualitative assessment, stable in appearance. , Structural: No malformations. Brain and Meninges: DWI sequence demonstrates no restricted diffusion to suggest acute or subacute cerebral ischemia. Scattered punctate, patchy and confluent zones of FLAIR/T2 signal hyperintensity seen within the subcortical and deeper periventricular white matter of both cerebral hemispheres with a posterior predominance, slightly progressed from the previous MRI without abnormal enhancement, likely reflecting chronic ischemic microangiopathy in a patient of this age. Minimal patchy central T2 hyperintensity in the gela is stable also likely reflecting chronic ischemic microangiopathy with no abnormal enhancement. Gradient refocused imaging demonstrates no abnormal magnetic susceptibility artifact to suggest hemorrhage, hemosiderin staining or abnormal mineralization within the limitations of the study. No definite intracranial mass lesions or pathologic intracranial enhancement are identified to suggest metastatic disease. No extra-axial fluid collections, space-occupying process or mass effect. Ventricles and Subarachnoid Spaces: The ventricular system and subarachnoid spaces are consistent with mild generalized volume loss without hydrocephalus. Orbital Structures: The visualized orbital structures are grossly unremarkable within the limitations of the study. Vascular: Signal voids are noted in the visualized major intracranial vessels. Osseous Structures, Sinuses/Mastoids, Extracranial Soft Tissues: Bilateral maxillary sinus fluid levels and mucosal thickening with probable retention cysts in the left maxillary sinus noted on current study with a small air-fluid level in a right middle turbinate brooke bullosa and some mucosal thickening in the ethmoid complex with a small amount of fluid or mucosal thickening in the sphenoid sinus on the right suggesting pansinus inflammatory changes. Subcentimeter benign submucosal retention cyst suspected in the posterior nasopharynx slightly to the left of midline which is a new finding. Osseous marrow signal intensity appears grossly unremarkable. MR/MR head/brain wo/w con IMPRESSION: 1. No definite evidence for intracranial metastatic disease within the limitations of the study (motion artifact). 2. Chronic ischemic microangiopathy in the white matter of both cerebral hemispheres, slightly progressed and minimal chronic ischemic microangiopathy in the gela stable in appearance. 3. Paranasal sinus inflammatory changes as described above with fluid levels in the maxillary sinuses bilaterally. Correlate for any evidence of acute sinusitis.
== END 2022-01-05 10:54 | disposition home or self-care (01) ==
LOC: HO.MRI 10:53
PROVIDERS: Visit Provider Internal Medicine Medical Oncology
DX: R91.1 Solitary pulmonary nodule (principal)
CPT/HCPCS: 70553; A9585

== ENCOUNTER 2022-01-25 12:26 | Outpatient (REF) | payer OTHER, SELFPAY ==
--- NOTE | ~2022-01-25 | XR_ITS ---
EXAMINATION: XR SHOULDER, RIGHT CLINICAL INFORMATION: Pain COMPARISON: None TECHNIQUE: AP external rotation, Grashey, scapular Y, and axillary views of the right shoulder. FINDINGS: There is loss of glenohumeral and AC joint space with periarticular spurring. No loose bodies. No joint effusion. The soft tissues are normal. Incidental finding of cement augmentation of several mid dorsal and lower dorsal vertebrae for compression fracture. XR/XR shoulder RT min 2V IMPRESSION: Degenerative arthritic changes right shoulder joint. No visible acute fracture, dislocation or subluxation seen.
== END 2022-01-25 12:27 | disposition home or self-care (01) ==
LOC: HO.XRAY 12:26
PROVIDERS: PCP Internal Medicine; Visit Provider Internal Medicine
DX: M25.511 Pain in right shoulder (principal)
CPT/HCPCS: 73030

== ENCOUNTER → 2022-02-05 09:23 | Outpatient (BNVA) | payer OTHER, SELFPAY | PROVIDERS: PCP Internal Medicine; Visit Provider Physician Assistant | DX: M19.011 Primary osteoarthritis, right shoulder (principal); M75.81 Other shoulder lesions, right shoulder | CPT/HCPCS: 20610; 99202; J1040 ==

== ENCOUNTER 2022-03-20 14:40 | Outpatient (REF) | payer OTHER, SELFPAY ==
--- NOTE | ~2022-03-20 | US_ITS ---
EXAMINATION: US VENOUS ULTRASOUND WITH DOPPLER LOWER EXTREMITY, RIGHT CLINICAL INFORMATION: Pain in right leg. COMPARISON: None TECHNIQUE: Ultrasound of the deep veins is performed from the hip to the calf with compression sonography and color and pulse Doppler assessment. Spectral analysis with color-flow imaging is performed. FINDINGS: There is normal venous compression and respiratory variation and augmented flow. The visualized common femoral vein, superficial femoral vein, profunda femoral vein, popliteal vein, and the trifurcation region shows no evidence of deep venous thrombosis. There is no significant popliteal fossa cyst. If the patient's symptoms persist, followup ultrasound in 5 days 7 days might be of value to exclude proximal propagation from a non-visualized calf vein. US/US venous duplex LE RT IMPRESSION: No DVT demonstrated in the right lower extremity.
== END 2022-03-20 14:41 | disposition home or self-care (01) ==
LOC: HO.US 14:40
PROVIDERS: Visit Provider Internal Medicine
DX: M79.604 Pain in right leg (principal)
CPT/HCPCS: 93971

== ENCOUNTER 2022-04-27 09:55 | Outpatient (REF) | payer OTHER, SELFPAY ==
[2022-04-27 10:05] LABS: MANUAL DIFF FLAG NO
[2022-04-27 10:42] LABS: Basophils Absolute Auto 0.1 X10*3/uL (0.0-0.2); Basophils Percent Auto 0.8 % (0-2); Eosinophils Absolute Auto 0.3 X10*3/uL (0.0-0.4); Hematocrit 39.6 % (37.0-47.0); Hemoglobin 12.7 g/dl (12.0-16.0); Imm Gran Abs Auto 0.04 X10*3/uL (0.00-0.03); Imm Gran Pct Auto 0.4 % (0.0-0.4); Lymphocytes Percent Auto 39.8 % (20-40); Mean Corpuscular HGB Conc 32.1 g/dl (31.0-35.0); Mean Corpuscular Hemoglobin 29.5 pg (27.0-33.0); Mean Corpuscular Volume 91.9 fL (80.0-98.0); Mean Platelet Volume 9.4 fL (9.4-12.3); Monocytes Absolute Auto 0.7 X10*3/uL (0.1-1.2); Monocytes Percent Auto 7.3 % (2-11); Neutrophils Absolute Auto 4.9 x10*3/uL (2.0-8.3); Neutrophils Percent Auto 48.7 % (45-73); Platelet Count 253 X10*3/uL (160-400); Red Blood Count 4.31 X10*6/uL (4.20-5.50); Red Cell Distribution Width 14.2 % (11.0-16.0); White Blood Count 10.1 X10*3/uL (4.8-10.8)
[2022-04-27 11:08] LABS: Alanine Aminotransferase 9 U/L (0-31); Albumin Level 3.8 g/dL (3.5-5.0); Alkaline Phosphatase 137 U/L (39-117); Anion Gap 13 (12-20); Aspartate Amino Transferase 20 U/L (5-31); Bilirubin Total 0.6 mg/dL (0.0-1.0); Blood Urea Nitrogen 13 mg/dL (9-16); Calcium 9.2 mg/dL (8.4-10.2); Carbon Dioxide 27 mmol/L (22-29); Chloride 107 mmol/L (96-108); Estimated Glomerular Filt Rate > 60; Glucose Random 81 mg/dL (60-115); Potassium 4.6 mmol/L (3.3-5.1); Sodium 142 mmol/L (135-145); Total Protein 6.8 g/dL (6.5-8.0)
== END 2022-04-27 09:56 | disposition home or self-care (01) ==
LOC: HO.LAB 09:55
PROVIDERS: PCP Internal Medicine; Visit Provider Internal Medicine
DX: Z00.01 Encounter for general adult medical examination with abnormal findings (principal); C34.90 Malignant neoplasm of unspecified part of unspecified bronchus or lung; J44.9 Chronic obstructive pulmonary disease, unspecified; R09.02 Hypoxemia; R51.9 Headache, unspecified
CPT/HCPCS: 36415; 80053; 85025

== ENCOUNTER → 2022-07-10 13:23 | Outpatient (BNVA) | payer OTHER, SELFPAY | PROVIDERS: PCP Internal Medicine; Visit Provider Hospitalist | DX: J43.2 Centrilobular emphysema (principal); J96.10 Chronic respiratory failure, unspecified whether with hypoxia or hypercapnia; R91.1 Solitary pulmonary nodule; C34.90 Malignant neoplasm of unspecified part of unspecified bronchus or lung | CPT/HCPCS: 94618; 99202 ==

== ENCOUNTER 2022-08-28 09:25 | Outpatient (REF) | payer OTHER, SELFPAY ==
--- NOTE | ~2022-08-28 | XR_ITS ---
EXAMINATION: 1. RADIOGRAPHS RIGHT SHOULDER 2. RADIOGRAPHS LEFT SHOULDER CLINICAL INFORMATION: Osteoarthritis COMPARISON: Right shoulder x-rays 01/25/2022 and bilateral shoulder x-rays 11/05/2019 TECHNIQUE: 3 views of each shoulder were obtained FINDINGS: Right shoulder: Diffuse osteopenia. Visualized portion of the proximal right humerus demonstrate no fracture. Humeral head demonstrates good articulation with the glenoid fossa. There are moderate hypertrophic changes of the right acromioclavicular joint. Small soft tissue calcification adjacent to the greater tuberosity of the humerus. Visualized right-sided ribs and lung parenchyma are unremarkable. Right chest Port-A-Cath appears in expected orientation. Patient is status post multilevel cement augmentation. Left shoulder: Visualized portion of the proximal left humerus demonstrate no fracture. Humeral head demonstrates good articulation the glenoid fossa. Small osteophyte off the inferior medial humeral head. There are mild to moderate hypertrophic changes of the left acromioclavicular joint. Small soft tissue calcification adjacent to the greater tuberosity of the humerus. Visualized left-sided ribs and lung parenchyma are unremarkable. XR/XR shoulder RT min 2V IMPRESSION: 1. Diffuse osteopenia. 2. Mild to moderate degenerative changes of both shoulders without fracture or dislocation.
--- NOTE | ~2022-08-28 | XR_ITS ---
EXAMINATION: 1. RADIOGRAPHS RIGHT SHOULDER 2. RADIOGRAPHS LEFT SHOULDER CLINICAL INFORMATION: Osteoarthritis COMPARISON: Right shoulder x-rays 01/25/2022 and bilateral shoulder x-rays 11/05/2019 TECHNIQUE: 3 views of each shoulder were obtained FINDINGS: Right shoulder: Diffuse osteopenia. Visualized portion of the proximal right humerus demonstrate no fracture. Humeral head demonstrates good articulation with the glenoid fossa. There are moderate hypertrophic changes of the right acromioclavicular joint. Small soft tissue calcification adjacent to the greater tuberosity of the humerus. Visualized right-sided ribs and lung parenchyma are unremarkable. Right chest Port-A-Cath appears in expected orientation. Patient is status post multilevel cement augmentation. Left shoulder: Visualized portion of the proximal left humerus demonstrate no fracture. Humeral head demonstrates good articulation the glenoid fossa. Small osteophyte off the inferior medial humeral head. There are mild to moderate hypertrophic changes of the left acromioclavicular joint. Small soft tissue calcification adjacent to the greater tuberosity of the humerus. Visualized left-sided ribs and lung parenchyma are unremarkable. XR/XR shoulder LT min 2V IMPRESSION: 1. Diffuse osteopenia. 2. Mild to moderate degenerative changes of both shoulders without fracture or dislocation.
== END 2022-08-28 09:26 | disposition home or self-care (01) ==
LOC: HO.XRAY 09:25
PROVIDERS: PCP Internal Medicine; Visit Provider Internal Medicine
DX: M19.012 Primary osteoarthritis, left shoulder (principal); M19.011 Primary osteoarthritis, right shoulder
CPT/HCPCS: 73030

== ENCOUNTER 2022-09-24 09:24 | Outpatient (AMB) | payer OTHER, SELFPAY ==
--- NOTE | 2022-09-24 10:39 | MHC.OFFVIS ---
Intake Intake Visit Reasons: ov- B/L shoulder pain Intake Note: Lety is a 72 year old female who presents today with bilateral shoulder pain Allergies aspirin [ASPIRIN] Allergy (Unknown, Verified 07/10/22 13:38) Upset Stomach HPI ov- B/L shoulder pain HPI Details Lety is a 72-year-old woman several months of bilateral shoulder pain right greater left. She is here today with her daughter. She works around the house regularly and finds this causes her pain. She has pain at night and during the day. She denies injury. She had injections in the past which were completely unhelpful. She denies numbness and tingling. [facility] Medical History (Updated 09/24/22 @ 11:43 by Wu Nunez MD) Arthritis Asthma Chronic respiratory failure Compression fracture of body of thoracic vertebra COPD (chronic obstructive pulmonary disease) Depression GERD (gastroesophageal reflux disease) Hypertension Lung cancer Microcytic hypochromic anemia Microscopic hematuria Osteoporosis (~2000) Personal history of nicotine dependence Surgical History History of back surgery History of esophagogastroduodenoscopy (EGD) History of left breast biopsy (~2009) History of vertebroplasty (~2014) Hx of colonoscopy Family History Mother No problems noted. 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 When controlling for scapular recruitment her active abduction is 30-40 degrees. She has external rotation to 45 degrees. 4/5 empty can. positive Romeo and Neer Results Reviewed Results Reviewed: I personally reviewed relevant radiographs. Mild glenohumeral OA bilaterally. Question proximal migration of humeral head on the right. Assessment & Plan Assessment & Plan (1) Rotator cuff arthropathy of right shoulder: Code(s): M12.811 - Other specific arthropathies, not elsewhere classified, right shoulder Plan: I counseled Lety to avoid painful activities home. Sounds like she does lots of work of around the house that her daughter feels is not necessary. I think she is weak and has very poor shoulder mechanics. She is not in physical therapy and feels injections have not been helpful. I think activity modification would be the most helpful intervention at this time. (2) COPD (chronic obstructive pulmonary disease): Code(s): J44.9 - Chronic obstructive pulmonary disease, unspecified Qualifiers: COPD type: emphysema Emphysema type: centrilobular Qualified Code(s): J43.2 - Centrilobular emphysema Plan: COPD on supplemental home oxygen. She is not a surgical candidate at this time given this and other comorbidities. Coding Level of Care Code Est Pt Level 4 (84435) Diagnoses Rotator cuff arthropathy of right shoulder M12.811 COPD (chronic obstructive pulmonary disease) J43.2 COPD type: emphysema Emphysema type: centrilobular
== END 2022-09-24 10:39 | disposition home or self-care (01) ==
LOC: HO.HOS 09:26
PROVIDERS: PCP Internal Medicine; Visit Provider Orthopaedic Surgery
DX: M12.811 Other specific arthropathies, not elsewhere classified, right shoulder (principal); J43.2 Centrilobular emphysema
CPT/HCPCS: 99214

== ENCOUNTER → 2022-09-24 09:24 | Outpatient (BNVA) | payer OTHER, SELFPAY | PROVIDERS: PCP Internal Medicine; Visit Provider Orthopaedic Surgery | DX: M12.811 Other specific arthropathies, not elsewhere classified, right shoulder (principal); J43.2 Centrilobular emphysema | CPT/HCPCS: 99212 ==

== ENCOUNTER 2022-10-01 11:28 | Outpatient (AMB) | payer OTHER, SELFPAY ==
--- NOTE | 2022-10-01 11:31 | MHC.OFFVIS ---
Intake Intake Visit Reasons: O/V right shoulder injection Intake Note: Lety is a 72 year old female who presents today for a right shoulder injection, DOI 02/05/22. Patient reports her last injection gave her some relief. She states that her pain is more on the bicep than the shoulder. Allergies aspirin [ASPIRIN] Allergy (Unknown, Verified 10/01/22 11:40) Upset Stomach HPI O/V right shoulder injection HPI Details 72-year-old female who returns to the office today for a follow-up of right shoulder pain, 02/05/23. She states she has pain which is more in her bicep than the shoulder. She had relief with the last injection and is interested in repeating the injection. [facility] Medical History Arthritis Asthma Chronic respiratory failure Compression fracture of body of thoracic vertebra COPD (chronic obstructive pulmonary disease) Depression GERD (gastroesophageal reflux disease) Hypertension Lung cancer Microcytic hypochromic anemia Microscopic hematuria Osteoporosis (~2000) Personal history of nicotine dependence Surgical History History of back surgery History of esophagogastroduodenoscopy (EGD) History of left breast biopsy (~2009) History of vertebroplasty (~2014) Hx of colonoscopy Family History Mother No problems noted. 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 When controlling for scapular recruitment her active abduction is 30-40 degrees. She has external rotation to 45 degrees. 4/5 empty can. positive Romeo and Neer Office Procedures Joint Injection/Drain Joint Injection/Drain Primary Site: right shoulder Prep: site was prepped using aseptic technique, ethochloride spray was applied and injection warnings given Injected: 80 mg of, DepoMedrol, with 8 mL of, 1% plain lidocaine and in the subcromial space Approach Used: posterolateral Procedure: The patient tolerated the procedure well and there was some relief with the local anesthesia Coding 02462 - Glenohumeral/Tronchanteric Bursa/Intraarticular Procedure code (CPT) selection complete Results Reviewed Results Reviewed: 10/01/22 11:34 Lidocaine HCl 2 % MPF [Xylocaine 2 % MPF] 5 ml .ROUTE .STK-MED ONE methylPREDNISolone acetate [DEPO-MedroL] 80 mg .ROUTE .STK-MED ONE Assessment & Plan Assessment & Plan (1) Arthritis of right acromioclavicular joint: Code(s): M19.011 - Primary osteoarthritis, right shoulder (2) Right rotator cuff tendonitis: Code(s): M75.81 - Other shoulder lesions, right shoulder Plan We discussed options today which include steroid injection. They did consent to move forward with the right shoulder injection, which was tolerated well. I recommended rest, ice and elevation and OTC anti-inflammatories PRN for discomfort. If symptoms persist or worsens over the next 6-8 weeks, patient will contact the office, otherwise follow-up as needed. Patient Instructions: Scribed for Israel Cruz PA-C, by Primo Holland medical accounting clerk, on 10/01/2022 at 11:30 AM ARTI. Israel Hoyos PA-C, have personally reviewed and agree with the information entered by the scribe. Coding Level of Care Code Est Pt Level 3 (03306) Diagnoses Arthritis of right acromioclavicular joint M19.011 Right rotator cuff tendonitis M75.81 CPT Codes Coding - Joint 7: 58224 - Glenohumeral/Tronchanteric Bursa/Intraarticular ([id number])
== END 2022-10-01 13:47 | disposition home or self-care (01) ==
PROVIDERS: PCP Internal Medicine; Visit Provider Physician Assistant
DX: M19.011 Primary osteoarthritis, right shoulder (principal); M75.81 Other shoulder lesions, right shoulder
CPT/HCPCS: 20610; 99213

== ENCOUNTER → 2022-10-01 11:28 | Outpatient (BNVA) | payer OTHER, SELFPAY | PROVIDERS: PCP Internal Medicine; Visit Provider Physician Assistant | DX: M19.011 Primary osteoarthritis, right shoulder (principal); M75.81 Other shoulder lesions, right shoulder | CPT/HCPCS: 20610; 99212; J1040 ==

== ENCOUNTER 2022-10-16 08:52 | Outpatient (AMB) | payer OTHER, SELFPAY ==
--- NOTE | 2022-10-16 08:57 | MHC.OFFVIS ---
Intake Vital Signs 10/16/22 08:59 Height 4 ft 8.3 in Weight 138 lb 14.259 oz BMI 30.8 BP 128/72 Pulse 85 Intake Visit Reasons: f/u osteoporosis Intake Note: Patient presents today for Osteoporosis follow up visit. 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: No Accompanied by: Daughter Allergies aspirin [ASPIRIN] Allergy (Unknown, Verified 10/16/22 09:05) Upset Stomach Medication List - Last Reconciled 10/16/22 by Denys Sanchez MD Advair HFA 115-21 mcg/actuation (fluticasone propion-salmeterol) 2 puffs inhalation Q12H 30 days NS albuterol sulfate 90 mcg/actuation 2 puffs inhalation Q6H PRN bisacodyl (Dulcolax (bisacodyl)) 10 mg (2 x 5 mg) PO ONCE 1 day dexamethasone 4 mg PO DAILY fluticasone furoate 100 mcg/actuation (Arnuity Ellipta) 1 inh inhalation DAILY folic acid 1 mg PO DAILY gabapentin 2 caps PO TID lidocaine-prilocaine 2.5-2.5 % grams topical ONCE lisinopril 5 mg PO DAILY loratadine 1 tab PO DAILY PRN meclizine 1 tab PO TID olanzapine 5 mg PO BEDTIME omeprazole 1 cap PO DAILY ondansetron HCl 8 mg PO Q8H PRN oxycodone 5 mg PO QID PRN polyethylene glycol 3350 (Miralax) 238 grams PO ONCE 1 day sertraline 1 tab PO DAILY tizanidine 2 mg PO BID PRN HPI HPI Comments History of Present Illness Details 72 YO F with PMHx multiple compression fx is seen in consultation at the request of PCP for Osteoporosis. First diagnosed in many yrs . Not Received treatment in the past Has multiple compression fractures of the spine Has few servings of dietary calcium per day Not Takes Calcium supplement Not Taking Vitamin D daily. Takes PPI, Not taking anticoagulant, antiepileptic or glucocorticoid medication. Does Not do weight bearing exercise Fracture history: Acute compression fractures at T6, T7, T8, T10, T11 and chronic compression fracture at L2. She is going for kyphoplasty next week Height loss: Yes [employer] history: age 45 nl menses Yes history of Kidney stones: No family history of Osteoporosis or hip fracture. UTD on dental cleanings and sees dentist every 6 months. Hasn't gone in yrs No planned upcoming dental work or extractions. DXA FINDINGS: AP SPINE L1-L4: BMD 0.729 g/cm2, Z-score -2.0, T-score -3.8, osteoporosis. LEFT FEMUR, NECK: BMD 0.719 g/cm2, Z-score -0.5, T-score -2.3, osteopenia. LEFT FEMUR, TOTAL: BMD 0.746 g/cm2, Z-score -0.5, T-score -2.1, osteopenia. IDENTIFIED RISK FACTORS: Menopause, height loss, history of fracture (adult), low calcium intake, osteoporosis. HISTORY OF FRACTURE: Thoracic spine. MEDICATIONS: None listed. MM/XR DEXA axial skeleton IMPRESSION: 1. DIAGNOSIS: Severe osteoporosis based on the lowest T-score value of -3.8 in the lumbar spine and history of acute edematous compression fractures thoracic spine applying World Health Organization criteria Labs: secondary workup negative except for slightly low vitamin-D [facility] Medical History (Updated 10/02/22 @ 11:58 by Sonia Arvizu PA-C) Arthritis Asthma Chronic respiratory failure Compression fracture of body of thoracic vertebra COPD (chronic obstructive pulmonary disease) Depression GERD (gastroesophageal reflux disease) Hypertension Lung cancer Microcytic hypochromic anemia Microscopic hematuria Osteoporosis (~2000) Personal history of nicotine dependence Surgical History History of back surgery History of esophagogastroduodenoscopy (EGD) History of left breast biopsy (~2009) History of vertebroplasty (~2014) Hx of colonoscopy Family History Mother No problems noted. 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 She is going for kyphoplasty next week. secondary causes ruled out except for slightly low vitamin-D The plan is to recheck 25-D . I will discuss pharmacologic therapy with patient including use of anabolic therapy Evenity considering history of multiple compression fractures. I discussed this with the patient her daughter and we agree that Evenity would be best choice considering the very high risk for subsequent fractures with very low bone density in the lumbar spine and previous fractures. Anti resorptive therapy is less desirable in the situation. Gayle a contraindicated because of history of radiation therapy Orders: Orders Vitamin D 25-OH Total 2 Months M81.0 - Age-related osteoporosis without current pathological fracture Medications: New cholecalciferol (vitamin D3) 50 mcg PO DAILY 30 caps 5RF Coding Level of Care Code Est Pt Level 3 (13650) Diagnoses Osteoporosis M81.0
[2022-10-16 08:59] VITALS: BP 128/72; PULSE 85; BMI 30.8
== END 2022-10-16 09:54 | disposition home or self-care (01) ==
PROVIDERS: PCP Internal Medicine; Visit Provider Internal Medicine Endocrinology, Diabetes & Metabolism
DX: M81.0 Age-related osteoporosis without current pathological fracture (principal)
CPT/HCPCS: 99213

== ENCOUNTER → 2022-10-16 08:52 | Outpatient (BNVA) | payer OTHER, MEDICAID, SELFPAY | PROVIDERS: Visit Provider Internal Medicine Endocrinology, Diabetes & Metabolism | DX: M81.0 Age-related osteoporosis without current pathological fracture (principal); E83.51 Hypocalcemia; S22.000G Wedge compression fracture of unspecified thoracic vertebra, subsequent encounter for fracture with delayed healing; X58.XXXD Exposure to other specified factors, subsequent encounter; Z79.891 Long term (current) use of opiate analgesic; Z79.899 Other long term (current) drug therapy | CPT/HCPCS: 99212 ==

== ENCOUNTER 2022-10-19 10:04 | Outpatient (AMB) | payer OTHER, SELFPAY ==
[2022-10-19 10:11] VITALS: BP 128/70; PULSE 81; O2SAT 96; BMI 30.1
--- NOTE | 2022-10-19 10:11 | MHC.OFFVIS ---
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 Recently diagnosed with stage IV lung cancer. Biopsy-proven squamous cell carcinoma with 80% activity against PDL1. The patient has been on chemotherapy. She is tolerating it well. She is going to get 6 cycles. In the meantime she also received stereotactic radiation to a nodule on the right side which was considered to be a stage I cancer. At this time the patient has been doing well though she is on oxygen. The oxygen tank is very hard for her to carry as it is season under. She takes that at 2 L continuous. In the office visit we did taken for 6 minute walk testing the patient actually did well at rest on room air and she did well using the portable oxygen concentrator at 3 L pulse maintaining a pulse ox of 94%. Therefore the patient still needs oxygen with activity but does qualify for a conserving device which would give her better portability outside of the home. She has been using her rescue inhaler. Before she had powdered inhalers and she cannot tolerate those. Therefore will switch over to Advair HFA in order for her to be on maintenance therapy. The patient did have PFTs back in November 2021 so will hold off on PFTs at this time. She is scheduled to undergo a repeat CT scan at [facility] in the coming days. 10/19/2022 the patient is here for a pulmonary follow-up visit. Overall the patient is doing well. She did get the personal fitness manager tanks which are much easier for her to carry. She is wondering about a portable oxygen concentrator. Although I do believe that she is better off with the oxygen tanks. The PCL and there was a very light and use differently. The patient also has been on chemotherapy. She is completing her course of chemotherapy in order to start the immune therapy which should do after she follows up with her oncologist. She will need further imaging studies and that will be per the Oncology team. She continues use her respiratory inhalers. The Advair inhaler has been effective. She does use it twice a day and does rinse her mouth afterwards. Denies any adverse effects. will follow-up in 4-6 months. [facility] Medical History (Updated 10/02/22 @ 11:58 by Sonia Arvizu PA-C) Arthritis Asthma Chronic respiratory failure Compression fracture of body of thoracic vertebra COPD (chronic obstructive pulmonary disease) Depression GERD (gastroesophageal reflux disease) Hypertension Lung cancer Microcytic hypochromic anemia Microscopic hematuria Osteoporosis (~2000) Personal history of nicotine dependence Surgical History History of back surgery History of esophagogastroduodenoscopy (EGD) History of left breast biopsy (~2009) History of vertebroplasty (~2014) Hx of colonoscopy Family History Mother No problems noted. 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 Review of Systems Const Reports fatigue Eyes Denies change in vision ENT Reports Normal hearing present and Denies change in voice Card Denies chest pain and Reports dyspnea Resp Reports cough, Denies hemoptysis, Reports dyspnea, Denies wheezing and Reports other (O2 by n/c) GI Denies hematochezia, Reports heartburn (Fairly well controlled), Denies nausea and Denies vomiting Musc Reports back pain Skin/Breast Denies rash Neuro Reports Normal hearing present, Denies Abnormal speech present and Denies confusion Psych Denies anxiety and Denies confusion Endo Reports fatigue Vinnie/Lymph Denies easy bleeding, Denies easy bruising and Denies lymphadenopathy Aller/Immun Denies wheezing Physical Exam Vital Signs: Last Vital Signs Pulse 81 10/19/22 10:11 BP 128/70 10/19/22 10:11 Pulse Ox 96 10/19/22 10:11 Oxygen Delivery Method Room Air 10/19/22 10:11 BMI result Body Mass Index 30.1 Const General: No confusion Orientation/consciousness: No confusion HEENT Head: Yes normocephalic and Yes atraumatic Ears: hearing grossly normal bilaterally Eyes General: appearance normal, both eyes and all related structures Eyelids: Yes eyelids normal Sclerae: sclerae normal Pupils: Equal, round and reactive pupils present EOM: EOMs intact bilaterally Neck Neck: Yes normal visual inspection and Yes supple Chest Chest palpation & inspection: normal inspection of the chest Resp Effort & Inspection: normal respiratory effort, able to speak in complete sentences and no audible wheezes Auscultation: no rales, no rhonchi, no wheezes and diminished lung sounds Cardio Rate: regular rate Rhythm: regular rhythm GI Palpation (GI): Soft to palpation and nontender Auscultation: normal bowel sounds Back/Spine/Pelvis Other: Limited exam due to severe pain. Can flex forward to 40 degrees and extend 5 degrees before experiencing lumbar/thoracic pain. Demonstrates 5/5 strength of quadriceps bilaterally as well as flexion/dorsiflexion of bilateral feet against resistance. Straight leg rise with dorsiflexion negative bilaterally. DTR intact and symmetrical. Sensation intact. Significant TTP throughout thoracic spine. Thoracic/Lumbar Spine: straight leg raise negative bilaterally, pain with thoraco-lumbar ROM, paraspinal muscle tenderness, thoraco-lumbar ROM limited, thoracic spinal tenderness and lumbar spinal tenderness Skin General skin exam: no rashes or lesions noted Neuro General: No confusion Cranial nerves: Yes Equal, round and reactive pupils present and Yes Normal hearing present Cognition (Neuro): normal cognition Speech: No Abnormal speech present Extrem General: Yes full ROM and Yes no clubbing, cyanosis or edema Psych Appearance: grossly normal Mental Status: mental status grossly normal Speech and movement: Normal speech and movement present Affect: normal affect Attitude: cooperative Thought process: Normal thought process present Thought content: Normal thought content present Insight: Good insight present (Psych) Judgement: Good judgement present (Psych) Assessment & Plan Assessment & Plan (1) COPD (chronic obstructive pulmonary disease): Code(s): J44.9 - Chronic obstructive pulmonary disease, unspecified Qualifiers: COPD type: emphysema Emphysema type: centrilobular Qualified Code(s): J43.2 - Centrilobular emphysema (2) Lung cancer: Code(s): C34.90 - Malignant neoplasm of unspecified part of unspecified bronchus or lung (3) Nodule of upper lobe of lung: Comment: (1.5 x 1.7 cm spiculated RUL nodule & 1.5 x 1.7 cm MONCHO nodule on 10/17/[address]) Code(s): R91.1 - Solitary pulmonary nodule (4) Chronic respiratory failure: Code(s): J96.10 - Chronic respiratory failure, unspecified whether with hypoxia or hypercapnia Plan continue Advair HFA JANIA as needed CT chest at [facility] continue oxygen: B cylinders with conserving valve from [employer]. 3L/pulse with activity, 2 L/min with sleep F/U 4 months or sooener if any new issues arise Coding Level of Care Code Est Pt Level 4 (53012) Diagnoses COPD (chronic obstructive pulmonary disease) J43.2 COPD type: emphysema Emphysema type: centrilobular Lung cancer C34.90 Nodule of upper lobe of lung R91.1 Chronic respiratory failure J96.10 Time Spent (min) 18
== END 2022-10-19 10:40 | disposition home or self-care (01) ==
PROVIDERS: PCP Internal Medicine; Visit Provider Hospitalist
DX: J43.2 Centrilobular emphysema (principal); C34.90 Malignant neoplasm of unspecified part of unspecified bronchus or lung; R91.1 Solitary pulmonary nodule; J96.10 Chronic respiratory failure, unspecified whether with hypoxia or hypercapnia
CPT/HCPCS: 99214

== ENCOUNTER → 2022-10-19 10:04 | Outpatient (BNVA) | payer OTHER, SELFPAY | PROVIDERS: PCP Internal Medicine; Visit Provider Hospitalist | DX: J43.2 Centrilobular emphysema (principal); J96.10 Chronic respiratory failure, unspecified whether with hypoxia or hypercapnia; C34.90 Malignant neoplasm of unspecified part of unspecified bronchus or lung; R91.1 Solitary pulmonary nodule | CPT/HCPCS: 99212 ==